=== PATIENT | female | born 1955 ===

== ENCOUNTER 2020-11-25 11:52 | Outpatient (REF) | payer MEDICARE, MEDICAID, SELFPAY ==
--- NOTE | ~2020-11-25 | MM_ITS ---
EXAMINATION: MM SCREENING DIGITAL BREAST TOMOSYNTHESIS, BILATERAL CLINICAL INFORMATION: Screening. Asymptomatic. Prior history reduction mammoplasty, 2012. The lifetime risk of breast cancer based on the Tyrer-Cuzick Model is 4%. COMPARISON: Mammography: 02/16/2018, 04/14/2016, 12/17/2014 TECHNIQUE: Digital breast tomosynthesis is performed in both the craniocaudal and mediolateral oblique views along with computer-aided detection (CAD). Synthesized 2D images are generated from the tomosynthesis. Additional right CC view is provided. FINDINGS: There are scattered areas of fibroglandular density (ACR BI-RADS breast composition Category b). There is minor scarring and scattered benign round calcifications consistent with the prior history reduction mammoplasty. Parenchymal pattern is similar to prior exams. There is no developing density or interval significant mass or architectural abnormality. No significant changes. MM/MM tomosynthesis screening BI IMPRESSION: No mammographic evidence of malignancy. ASSESSMENT: BI-RADS 2: Benign RECOMMENDATION: Routine annual mammography screening. This patient's information was entered into a reminder system with a target due date for their next mammogram.
== END 2020-11-25 11:53 | disposition home or self-care (01) ==
LOC: HO.MAMMO 11:52
PROVIDERS: Visit Provider Internal Medicine
DX: Z12.31 Encounter for screening mammogram for malignant neoplasm of breast (principal)
CPT/HCPCS: 77063; 77067

== ENCOUNTER 2021-10-23 21:01 | Emergency (ER) | payer MEDICARE, MEDICAID, SELFPAY ==
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
[2021-10-23 22:07] VITALS: BP 156/57; PULSE 68; RESP 18; TEMP 36.8; O2SAT 98; BMI 35.6
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
== END 2021-10-24 00:43 | disposition left against medical advice (07) ==
PROVIDERS: Emergency Provider Emergency Medicine; PCP Internal Medicine
DX: S16.1XXA Strain of muscle, fascia and tendon at neck level, initial encounter (principal); V43.52XA Car driver injured in collision with other type car in traffic accident, initial encounter; M79.641 Pain in right hand; Y93.89 Activity, other specified; Y92.414 Local residential or business street as the place of occurrence of the external cause; Y99.9 Unspecified external cause status
CPT/HCPCS: 70450; 72125; 73110; 73130; 99281; 99284

== ENCOUNTER 2022-10-18 18:06 | Outpatient (REF) | payer OTHER, MEDICAID, SELFPAY | END 2022-10-18 18:07 | disposition home or self-care (01) | LOC: HO.HHCLNP 18:06 | PROVIDERS: Visit Provider Student in an Organized Health Care Education/Training Program | DX: R82.90 Unspecified abnormal findings in urine (principal) | CPT/HCPCS: 87086 ==

== ENCOUNTER 2022-10-22 09:17 | Outpatient (REF) | payer OTHER, MEDICAID, SELFPAY ==
--- NOTE | ~2022-10-22 | MM_ITS ---
EXAMINATION: MM SCREENING DIGITAL BREAST TOMOSYNTHESIS, BILATERAL CLINICAL INFORMATION: Screening. Asymptomatic. The patient has had bilateral reduction mammoplasty. The lifetime risk of breast cancer based on the Tyrer-Cuzick Model is 8.1%. COMPARISON: Mammography: This study is compared with prior exams dating back to 2018. TECHNIQUE: Digital breast tomosynthesis is performed in both the craniocaudal and mediolateral oblique views along with computer-aided detection (CAD). Synthesized 2D images are generated from the tomosynthesis. FINDINGS: There are scattered areas of fibroglandular density (ACR BI-RADS breast composition Category b). There are no significant masses, abnormal calcifications, or other abnormalities. Bilateral post-reduction changes are present. MM/MM tomosynthesis screening BI IMPRESSION: No mammographic evidence of malignancy. ASSESSMENT: BI-RADS BI-RADS 2 - Benign Findings RECOMMENDATION: Routine annual mammography screening. 1 year F/U This examination should not preclude the clinical evaluation of a suspicious palpable abnormality. This patient's information was entered into a reminder system with a target due date for their next mammogram.
== END 2022-10-22 09:18 | disposition home or self-care (01) ==
LOC: HO.MAMMO 09:17
PROVIDERS: Visit Provider Internal Medicine
DX: Z12.31 Encounter for screening mammogram for malignant neoplasm of breast (principal)
CPT/HCPCS: 77063; 77067

== ENCOUNTER → 2022-10-22 09:45 | Outpatient (BNV) | payer OTHER, MEDICAID, SELFPAY | PROVIDERS: Visit Provider Radiology Diagnostic Radiology | DX: Z12.31 Encounter for screening mammogram for malignant neoplasm of breast (principal) | CPT/HCPCS: 77063; 77067 ==

== ENCOUNTER 2022-12-02 16:19 | Outpatient (REF) | payer OTHER, MEDICAID, SELFPAY ==
[2022-12-02 19:44] LABS: Free T4 (Free Thyroxine) 0.74 ng/dL (0.71-1.85)
[2022-12-03 09:30] LABS: CT PCR NOT DETECTED (Not Detect.); NG PCR NOT DETECTED (Not Detect.)
[2022-12-03 12:10] LABS: BV Int Neg Control Negative (Negative); BV Int Pos Control Positive (Positive)
== END 2022-12-02 16:20 | disposition home or self-care (01) ==
LOC: HO.HHCL 16:19
PROVIDERS: Visit Provider Emergency Medicine
DX: R30.0 Dysuria (principal); J02.9 Acute pharyngitis, unspecified; E03.9 Hypothyroidism, unspecified
CPT/HCPCS: 0353U; 36415; 84439; 84443; 87086; 87480; 87510; 87660

== ENCOUNTER 2022-12-09 15:40 | Outpatient (REF) | payer OTHER, MEDICAID, SELFPAY ==
[2022-12-09 17:55] LABS: TSH reflex Free T4 5.97 uIU/mL (0.32-4.0)
[2022-12-09 19:14] LABS: Free T4 (Free Thyroxine) 0.86 ng/dL (0.71-1.85)
== END 2022-12-09 15:41 | disposition home or self-care (01) ==
LOC: HO.HHCL 15:40
PROVIDERS: Visit Provider Emergency Medicine
DX: E03.9 Hypothyroidism, unspecified (principal); R30.0 Dysuria
CPT/HCPCS: 36415; 84439; 84443; 87086

== ENCOUNTER 2022-12-14 17:31 | Outpatient (REF) | payer OTHER, SELFPAY ==
[2022-12-15 05:52] LABS: CT PCR NOT DETECTED (Not Detect.); NG PCR NOT DETECTED (Not Detect.)
[2022-12-15 15:12] LABS: BV Int Neg Control Negative (Negative); BV Int Pos Control Positive (Positive)
== END 2022-12-14 17:32 | disposition home or self-care (01) ==
LOC: HO.HHCLNP 17:31
PROVIDERS: Visit Provider Emergency Medicine
DX: R39.9 Unspecified symptoms and signs involving the genitourinary system (principal); Z20.2 Contact with and (suspected) exposure to infections with a predominantly sexual mode of transmission
CPT/HCPCS: 0353U; 87086; 87480; 87510; 87660

== ENCOUNTER 2023-02-10 13:51 | Outpatient (REF) | payer OTHER, SELFPAY ==
[2023-02-10 16:39] LABS: Alanine Aminotransferase 16 U/L (0-31); Albumin Level 3.9 g/dL (3.5-5.0); Alkaline Phosphatase 92 U/L (39-117); Anion Gap 12 (12-20); Aspartate Amino Transferase 21 U/L (5-31); Bilirubin Direct 0.2 mg/dL (0.0-0.5); Bilirubin Total 0.4 mg/dL (0.0-1.0); Blood Urea Nitrogen 18 mg/dL (9-16); Calcium 9.3 mg/dL (8.4-10.2); Carbon Dioxide 26 mmol/L (22-29); Chloride 107 mmol/L (96-108); Estimated Glomerular Filt Rate > 60; Glucose Random 102 mg/dL (60-115); Potassium 4.1 mmol/L (3.3-5.1); Sodium 141 mmol/L (135-145)
[2023-02-10 16:41] LABS: Cholesterol 186 mg/dL (<200); HDL Cholesterol 51 mg/dL (>40); LDL Cholesterol Calculated 115 mg/dL (<100); Triglycerides 104 mg/dL (<150)
[2023-02-10 16:56] LABS: Reflex LDLD? No; TSH reflex Free T4 0.15 uIU/mL (0.32-4.0)
[2023-02-10 17:57] LABS: Free T4 (Free Thyroxine) 1.23 ng/dL (0.71-1.85)
[2023-02-12 21:24] LABS: TS Negative Control Passed; TS Panel A 0; TS Panel B 0; TS Positive Control Passed; TSpotTB Negative (Negative)
== END 2023-02-10 13:52 | disposition home or self-care (01) ==
LOC: HO.HHCL 13:51
PROVIDERS: Visit Provider Internal Medicine
DX: Z00.00 Encounter for general adult medical examination without abnormal findings (principal); J45.20 Mild intermittent asthma, uncomplicated; E03.9 Hypothyroidism, unspecified; E78.2 Mixed hyperlipidemia
CPT/HCPCS: 36415; 80048; 80061; 80076; 84439; 84443; 86481

== ENCOUNTER 2023-03-16 15:07 | Outpatient (AMB) | payer OTHER, SELFPAY ==
--- NOTE | 2023-03-16 15:10 | A.OFFVIS_ITS ---
Intake Intake Visit Reasons: Dysuria Intake Note: NEW Patient presents today to established treatment for Dysuria: Meds- None Allergies to Antibiotic- No Known Allergies Blood Thinner- None Bag Making Machine Tender Required: No Accompanied by: Self / Same As Patient Allergies naproxen [From NAPROSYN] Allergy (Severe, Verified 03/16/23 15:11) TONGUE NUMBNESS, cramps, itching tramadol [TRAMADOL] Allergy (Severe, Verified 03/16/23 15:11) TONGUE NUMBNESS, leg cramps, cramps, itching fish derived [FISH] Allergy (Intermediate, Verified 03/16/23 15:11) RASH AND VOMITING Medication List - Last Reconciled 03/16/23 by Augusto Leslie MD cholecalciferol (vitamin D3) (Vitamin D3) 10 mcg PO QAM levothyroxine 125 mcg PO QAM [id number]-fpka-[id number] acid 18-400 mg-mcg (Certavite-Antioxidant) 1 tab PO QAM phenazopyridine (Pyridium) 200 mg PO BID-TID HPI HPI Comments History of Present Illness Details Marcia is a 68 year old female here as a BEATER OUT evaluation for dysuria. The patient complains of dysuria for several months, she has been to the [facility] urgent care x 3. I have reviewed chart, urine culture 12/14/22 - no growth. I have discussed avoiding dietary bladder irritants, including to cut back on caffeine usage and drinking more water I have discussed workup to include evaluation of the upper tracts with renal US and cystoscopy evaluation. Plan: 03/16/23-- urine for cytology pyridium renal US FU office cysto PFSH Surgical History (Updated 03/16/23 @ 16:14 by MING Hurd) Status post panniculectomy Hx of bilateral breast reduction surgery Hx of cholecystectomy History of sleeve gastrectomy Hx of myomectomy History of prolapse of bladder Hx of tubal ligation Hx of hemorrhoids Hx of hernia repair Family History (Updated 03/16/23 @ 16:15 by MING Hurd) Father No problems noted. Mother No problems noted. Social History (Updated 03/16/23 @ 16:14 by MING Hurd) Alcohol intake: never Patient Tobacco Use Status: Never used Tobacco Review of Systems Const All systems reviewed & are unremarkable except as noted in HPI and below Reports no additional complaints Eyes Reports no additional complaints ENT Reports no additional complaints Card Denies dyspnea Resp Denies cough and Denies dyspnea GI Reports no additional complaints Reports no additional complaints Musc Reports no additional complaints Skin/Breast Denies rash and Denies unusual bruising Neuro Reports no additional complaints Psych Reports no additional complaints Endo Reports no additional complaints Ariel/Lymph Reports no additional complaints Aller/Immun Reports no additional complaints Physical Exam Const General: cooperative, healthy appearing and no acute distress Orientation/consciousness: patient oriented x3 HEENT Head: Yes normal to inspection, Yes normocephalic and Yes atraumatic Eyes Conjunctivae: conjunctivae normal Neck Neck: Yes normal visual inspection and Yes trachea midline Chest Chest palpation & inspection: normal inspection of the chest Resp Effort & Inspection: normal respiratory effort Cardio Rate: regular rate GI Inspection: Yes normal to inspection Skin General skin exam: no rashes or lesions noted Neuro General: patient oriented x3 Extrem General: No edema Psych Appearance: grossly normal Results AMB Urinalysis, Automated UA Leukoctes 15 Scott/uL Last Edit by MING Hurd on 03/16/23 16:18 UA Nitrite Negative Last Edit by MING Hurd on 03/16/23 16:18 UA Urobilinogen 0.2 mg/dL Last Edit by MING Hurd on 03/16/23 16:1 8 UA Protein 15 mg/dL Last Edit by MING Hurd on 03/16/23 16:18 UA pH 5.5 Last Edit by MING Hurd on 03/16/23 16:18 UA Blood 0 Stephen/uL Last Edit by MING Hurd on 03/16/23 16:18 UA Specific [place] 1.030 Last Edit by MING Hurd on 03/16/23 16: 18 UA Ketone Negative Last Edit by MING Hurd on 03/16/23 16:18 UA Bilirubin 0 mg/dL Last Edit by MING Hurd on 03/16/23 16:18 UA Glucose 0 mg/dL Last Edit by MING Hurd on 03/16/23 16:18 Results Reviewed Results Reviewed: Laboratory Last Values Urine pH (Auto) 5.5 03/16/23 16:16 Specific [place] (Auto) 1.030 03/16/23 16:16 Urine Protein (Auto) 15 mg/dL 03/16/23 16:16 Glucose (UA)(Auto) 0 mg/dL 03/16/23 16:16 Urine Ketones (Auto) Negative 03/16/23 16:16 Urine Blood (Auto) 0 Stephen/uL 03/16/23 16:16 Urine Nitrite (Auto) Negative 03/16/23 16:16 Urine Bilirubin (Auto) 0 mg/dL 03/16/23 16:16 Urine Urobilinogen (Auto) 0.2 mg/dL 03/16/23 16:16 Leukocyte Esterase (Auto) 15 Scott/uL 03/16/23 16:16 Assessment & Plan Assessment & Plan (1) Dysuria: Code(s): R30.0 - Dysuria (2) Urinary frequency: Code(s): R35.0 - Frequency of micturition Plan 03/16/23-- urine for cytology pyridium renal US FU office cysto Orders: Orders AMB Urinalysis Automated 03/16/23 Z13.9 - Encounter for screening, unspecified US retroperitoneal comp 03/16/23 R30.0 - Dysuria, R35.0 - Frequency of micturition Medications: New phenazopyridine (Pyridium) take with food 200 mg PO BID-TID 30 tabs 1RF for urine burning Patient Instructions: The patient had an opportunity to ask questions regarding treatment plan. All questions were answered. Laboratory studies and physical exam results were discussed and reviewed in detail. No major barriers to understanding were identified. The patient expressed understanding and agreement with the above treatment plan. The patient is aware they should contact our office by phone for worsening of their current condition or the appearance of new symptoms. Compliance is encouraged with any medications and followup testing that is ordered. It is a privilege to be allowed the opportunity to participate in the urologic care of your patient. If you have any questions or concerns regarding treatment for the above conditions please do not hesitate to contact me. The office telephone contact is [phone]. This note is constructed in part using voice recognition software. While every effort has been made to ensure accuracy family dinner service specialist errors may have been included. Yours sincerely, Augusto Leslie MD Coding Level of Care Code New Pt Level 4 (05401) Diagnoses Dysuria R30.0 Urinary frequency R35.0
== END 2023-03-16 16:06 | disposition home or self-care (01) ==
PROVIDERS: Visit Provider Urology
DX: R30.0 Dysuria (principal); R35.0 Frequency of micturition
CPT/HCPCS: 99204

== ENCOUNTER → 2023-03-16 15:07 | Outpatient (BNVA) | payer OTHER, SELFPAY | PROVIDERS: Visit Provider Urology | DX: R30.0 Dysuria (principal); R35.0 Frequency of micturition | CPT/HCPCS: 81003; 99202 ==

== ENCOUNTER 2023-04-27 14:33 | Outpatient (REF) | payer OTHER, SELFPAY ==
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
== END 2023-04-27 14:34 | disposition home or self-care (01) ==
LOC: HO.US 14:33
PROVIDERS: PCP Internal Medicine; Visit Provider Urology
DX: R30.0 Dysuria (principal); R35.0 Frequency of micturition
CPT/HCPCS: 76775

== ENCOUNTER 2023-04-28 09:01 | Outpatient (REF) | payer OTHER, SELFPAY ==
--- NOTE | ~2023-04-28 | US_ITS ---
EXAMINATION: US PELVIS LIMITED (BLADDER) CLINICAL INFORMATION: Dysuria. COMPARISON: Renal ultrasound from 04/27/2023 TECHNIQUE: Real-time imaging of the bladder. FINDINGS: The urinary bladder appears to have normal wall thickness. No evidence of mass, stone or diverticulum. The urine within the bladder is anechoic. The bladder is distended to a volume of approximately 250 mL. After voiding, the bladder is completely empty. A right ureteral jet is visualized during the brief time of imaging. US/US bladder IMPRESSION: * Urinary bladder has a normal anatomic appearance. * The patient was able to completely empty the bladder (as shown on post void images).
== END 2023-04-28 09:02 | disposition home or self-care (01) ==
LOC: HO.US 09:01
PROVIDERS: PCP Internal Medicine; Visit Provider Urology
DX: R30.0 Dysuria (principal); R35.0 Frequency of micturition
CPT/HCPCS: 52000; 76857; 81003; 99212

== ENCOUNTER 2023-04-28 14:31 | Outpatient (AMB) | payer OTHER, SELFPAY ==
--- NOTE | 2023-04-28 15:17 | MHC.OFFVIS ---
Intake Intake Visit Reasons: cysto/US/ (set) Intake Note: Patient presents today for a CYSTOSCOPY Procedure: Meds: Pyridium Allergies to Antibiotic: No Known Allergies Blood Thinner: None Urinalysis test cleared for Cysto Disposable Uro-G Cystoscope Cannula: Lot: [id number] Exp: 08/11/2024 Sound Person Required: No Accompanied by: Self / Same As Patient Allergies naproxen [From NAPROSYN] Allergy (Severe, Verified 04/28/23 15:18) TONGUE NUMBNESS, cramps, itching tramadol [TRAMADOL] Allergy (Severe, Verified 04/28/23 15:18) TONGUE NUMBNESS, leg cramps, cramps, itching fish derived [FISH] Allergy (Intermediate, Verified 04/28/23 15:18) RASH AND VOMITING Medication List - Last Reconciled 04/28/23 by Augusto Leslie MD cholecalciferol (vitamin D3) (Vitamin D3) 10 mcg PO QAM estradiol 0.01%(0.1mg/gram) (Estrace) 0.5 grams vaginal BEDTIME levothyroxine 125 mcg PO QAM xsetmbidqfyz-hcjt-schnu acid 18-400 mg-mcg (Certavite-Antioxidant) 1 tab PO QAM phenazopyridine (Pyridium) 200 mg PO BID-TID HPI HPI Comments History of Present Illness Details Marcia is a 68 year old female here as a FU evaluation for dysuria. The patient complains of dysuria for several months, [facility] I have reviewed chart, urine culture 12/14/22 - no growth. She was initially evaluated and started empirically on Pyridium and sent for ultrasound. I have also discussed avoiding dietary bladder irritants, including to cut back on caffeine usage and drinking more water I have reviewed renal and bladder ultrasound results with the patient--kidneys within normal limits, bladder ultrasound no suspicious filling defects noted. Evaluation today pelvic exam small urethral caruncle, vaginal atrophy, on cystoscopy bladder filled with 150 mL, bladder mucosa no suspicious bladder lesions, after removal of cystoscope no leakage with cough or Valsalva. Plan: 04/28/23-- cysto today--findings- bladder mucosa - WNL Estrace cream apply dime-sized amount to urethra at bedtime follow-up in 6 months [facility] Surgical History Hx of cystoscopy Status post panniculectomy Hx of bilateral breast reduction surgery Hx of cholecystectomy History of sleeve gastrectomy Hx of myomectomy History of prolapse of bladder Hx of tubal ligation Hx of hemorrhoids Hx of hernia repair Family History Father No problems noted. Mother No problems noted. Social History Alcohol intake: never Patient Tobacco Use Status: Never used Tobacco Review of Systems Const All systems reviewed & are unremarkable except as noted in HPI and below Reports no additional complaints Eyes Reports no additional complaints ENT Reports no additional complaints Card Denies dyspnea Resp Denies cough and Denies dyspnea GI Reports no additional complaints Reports no additional complaints Musc Reports no additional complaints Skin/Breast Denies rash and Denies unusual bruising Neuro Reports no additional complaints Psych Reports no additional complaints Endo Reports no additional complaints Ariel/Lymph Reports no additional complaints Aller/Immun Reports no additional complaints Office Procedures Cystoscopy Consent Discussed risk and benefit or proposed procedure with the patient. Information consent for procedure given to the patient. Discussed technical aspects, risks, benefits and alternatives in full. Addressed all of the patient's questions and concerns regarding the procedure. The patient demonstrated knowledge and understanding. They wish to proceed with this procedure. Preparation The patient was prepped in the usual manner. A regulatory compliance specialist was present and in the room. Genitalia was prepped with betadine solution in a sterile manner. Lidocaine Jelly 2% was placed into the urethra and 16Fr flexible Olympus cystoscope was inserted into the meatus after adequate lubrication. Procedure Time out per protocol performed. Bladder Inspection Bladder Inspection: The bladder was inspected in its entirety with utilization retroflexion displaying: Tumor(s): none visualized Trabeculation: N/A Mucosal Erthema: N/A Orifices: normal shape and position Urethra: normal Cystoscopy findings: WNL, no suspicious bladder lesions visualized [id number] DISPOSABLE SCOPE URO-G FLEXIBLE SCOPE Procedure code (CPT) selection complete Office Meds lidocaine HCl 2 % mucosal jelly in applicator Performing Provider: Augusto Leslie MD [facility] Administered by: Ella Gonsalves RN on 04/28/23 15:35 Dose Route Admin Location Dispensed Lot Number Expiration Date NDC Tie Carrier 10 mL intra-urethral 10 mL ciprofloxacin HCl 500 mg tablet Performing Provider: Augusto Leslie MD Performing Location: [facility] Administered by: Ella Gonsalves RN on 04/28/23 15:35 Dose Route Admin Location Dispensed Lot Number Expiration Date NDC Tie Carrier 500 mg PO 1 tab Results AMB Urinalysis, Automated UA Leukoctes 70 Scott/uL Last Edit by MING Hurd on 04/28/23 15:40 1+ Harika Still 04/28/23 15:40 UA Nitrite Negative Last Edit by Harika Still [facility] on 04/28/23 15:40 UA Urobilinogen 0.2 mg/dL Last Edit by Harika Still [facility] on 04/28/23 15:40 UA Protein 15 mg/dL Last Edit by Harika Still [facility] on 04/28/23 15:40 UA pH 5.5 Last Edit by Harika Still [facility] on 04/28/23 15:40 UA Blood 0 Stephen/uL Last Edit by Harika Stlil [facility] on 04/28/23 15:40 UA Specific Artemus 1.030 Last Edit by Harika Still [facility] on 04/28/23 15:40 UA Ketone Negative Last Edit by Harika Still Varun on 04/28/23 15:40 UA Bilirubin 0 mg/dL Last Edit by Harika Still [facility] on 04/28/23 15:40 UA Glucose 0 mg/dL Last Edit by Harika Still [facility] on 04/28/23 15:40 Results Reviewed Results Reviewed: Laboratory Last Values Urine pH (Auto) 5.5 04/28/23 15:10 Specific Artemus (Auto) 1.030 04/28/23 15:10 Urine Protein (Auto) 15 mg/dL 04/28/23 15:10 Glucose (UA)(Auto) 0 mg/dL 04/28/23 15:10 Urine Ketones (Auto) Negative 04/28/23 15:10 Urine Blood (Auto) 0 Stephen/uL 04/28/23 15:10 Urine Nitrite (Auto) Negative 04/28/23 15:10 Urine Bilirubin (Auto) 0 mg/dL 04/28/23 15:10 Urine Urobilinogen (Auto) 0.2 mg/dL 04/28/23 15:10 Leukocyte Esterase (Auto) 70 Scott/uL 04/28/23 15:10 Assessment & Plan Assessment & Plan (1) Dysuria: Code(s): R30.0 - Dysuria (2) Urinary frequency: Code(s): R35.0 - Frequency of micturition (3) Vaginal atrophy: Code(s): N95.2 - Postmenopausal atrophic vaginitis Plan 04/28/23-- cysto today--findings- bladder mucosa - WNL Estrace cream apply dime-sized amount to urethra at bedtime follow-up in 6 months Orders: Orders AMB Urinalysis Automated 04/28/23 Z13.9 - Encounter for screening, unspecified AMB Cystoscopy 04/28/23 R30.0 - Dysuria, R35.0 - Frequency of micturition Medications: New estradiol 0.01%(0.1mg/gram) (Estrace) use dime sized amount to urethra vaginally 0.5 grams vaginal BEDTIME 42.5 grams 5RF Coding Level of Care Code Est Pt Level 3 (48241) Diagnoses Dysuria R30.0 Urinary frequency R35.0 Vaginal atrophy N95.2 CPT Codes Cystoscopy - CPT: 82236-[id number] ([id number])
== END 2023-04-28 16:17 | disposition home or self-care (01) ==
PROVIDERS: Visit Provider Urology
DX: R30.0 Dysuria (principal); R35.0 Frequency of micturition; N95.2 Postmenopausal atrophic vaginitis
CPT/HCPCS: 52000; 99213

== ENCOUNTER 2023-08-06 14:46 | Emergency (ER) | payer OTHER, SELFPAY ==
--- NOTE | ~2023-08-06 | XR_ITS ---
EXAMINATION: XR KNEE, RIGHT CLINICAL INFORMATION: Pain COMPARISON: Previous x-ray from 2017 TECHNIQUE: Four views of the right knee. FINDINGS: Bone alignment is normal. No fracture or dislocation. Small osteophytes at the medial femoral tibial joint. Joint spaces are otherwise normal. Moderate to large joint effusion. XR/XR knee RT 4V IMPRESSION: Degenerative changes at the medial femoral tibial joint and joint effusion.
[2023-08-06 14:50] VITALS: BP 145/72; PULSE 87; RESP 19; TEMP 36.6; O2SAT 98; BMI 33.8
--- NOTE | 2023-08-06 14:50 | ED.LOWEXIN ---
HPI - Extremity Injury (Lower) General Chief Complaint: Extremity Injury, Lower Stated Complaint: R leg pain Time Seen by Provider: 08/06/23 15:39 Source: patient Mode of arrival: ambulatory Limitations: no limitations History of Present Illness HPI Narrative: 68-year-old female with a history osteoarthritis in the right knee presents to the ER for evaluation of worsening right knee pain for the last couple of days. She can not recall any injury. She states it is painful to walk on the knee and bend the knee. She states it feels slightly swollen. She used to get injections in the knee but not recently. She follows with an orthopedist and [place]. She denies any ankle or hip pain on the right leg. No redness or warmth of the joint. she is walking with a limp due to pain MD complaint: knee injury Onset (ago): day(s) Type of Injury: unknown Place: home Severity: moderate Severity scale (1-10): 7 Relieving factors: immobilization and rest Exacerbating factors: weight bearing, movement and palpation Associated symptoms: able to partially bear weight Other symptoms: none Related Data Home Medications ?Medication ?Instructions ?Recorded ?Confirmed cholecalciferol (vitamin D3) 10 10 mcg PO QAM 03/16/23 04/28/23 mcg (400 unit) tablet (Vitamin D3) levothyroxine 125 mcg tablet 125 mcg PO QAM 03/16/23 04/28/23 multivitamin-ferrous 1 tab PO QAM 03/16/23 04/28/23 fumarate-folic acid 18 mg-400 mcg tablet (Certavite-Antioxidant) Previous Rx's ?Medication ?Instructions ?Recorded phenazopyridine 200 mg tablet 200 mg PO BID-TID for urine 03/16/23 (Pyridium) burning #30 tabs estradiol 0.01% (0.1 mg/gram) 0.5 g vaginal BEDTIME #42.5 grams 04/28/23 vaginal cream (Estrace) Allergies Allergy/AdvReac Type Severity Reaction Status Date / Time naproxen [From NAPROSYN] Allergy Severe TONGUE Verified 08/06/23 14:51 NUMBNESS, cramps, itching tramadol [TRAMADOL] Allergy Severe TONGUE Verified 08/06/23 14:51 NUMBNESS, leg cramps, cramps, itching fish derived [FISH] Allergy Intermediate RASH AND Verified 08/06/23 14:51 VOMITING Review of Systems Review of Systems: Yes all other systems are reviewed and are negative [facility] Past Medical History Surgical History Hx of cystoscopy Status post panniculectomy Hx of bilateral breast reduction surgery Hx of cholecystectomy History of sleeve gastrectomy Hx of myomectomy History of prolapse of bladder Hx of tubal ligation Hx of hemorrhoids Hx of hernia repair Family History Family History Father No problems noted. Mother No problems noted. Social History Social History Alcohol intake: never Patient Tobacco Use Status: Never used Tobacco Advance Directives: No Advance Directives Information Provided: No Physical Exam Vital Signs: Vital Signs: Last Vital Signs Temp 98 F 08/06/23 14:50 Pulse 87 08/06/23 14:50 Resp 19 08/06/23 14:50 BP 145/72 H 08/06/23 14:50 Pulse Ox 98 08/06/23 14:50 O2 Del Method Room Air 08/06/23 14:50 BMI result Body Mass Index 33.8 Appearance: Alert. Oriented X3. No acute distress. HEENT: normal inspection CVS: Normal heart rate and rhythm. Pulses normal. Respiratory: No respiratory distress. Skin: Skin warm and dry. Normal skin color. Normal skin turgor. No rashes. Extremities: wheeze lower extremities, difficult to assess for knee swelling. Pain upon flexion of the right knee once at 45 degrees. Pain with varus and valgus stress. No joint laxity appreciated. No popliteal tenderness, no calf tenderness. Neurovascularly intact distally. Neuro: Oriented X 3. No motor deficit. No sensory deficit. Antalgic gait Course Course Course Narrative: This is an RME performed by Karo Altman CNP: Additional HPI, ROS, PE not included below will be deferred to primary provider. 68-year-old who presents emergency department for evaluation of right knee pain. Reports history of getting injections into the knee, has not had any pain for the past 5 years. Pain began 2 days ago without precipitating injury, unrelieved by acetaminophen. Physical exam: Ambulatory with antalgic gait, no obvious effusion/ erythema or warmth. 2+ DP/PT pulse bilaterally. No calf tenderness. Plan: XR Medical Decision Making Medical Decision Making MDM Narrative: 68-year-old female with history of osteoarthritis presents the ER for evaluation of worsening atraumatic right knee pain. Joint is not warm or red. xr w/ Degenerative changes and a moderate to large joint effusion. No evidence of infection. Placed in Rosalino wrap for compression and support. We discussed results of her x-rays. She will follow up with her orthopedist. No need for arthrocentesis today. She is ambulatory. Stable for discharge home. Differential Diagnosis Differential Diagnoses: The differential diagnosis associated with the presentation includes osteoarthritis, inflammatory arthritis, knee effusion, gout, septic joint Independent Interpretation I performed an independent interpretation of an: Plain X-Ray Interpretation: No acute fractures, agree with radiology read Radiology Impression Discussion of test interpretation with radiology: I have reviewed the radiologist's reading. Radiologist Impression: EXAMINATION: XR KNEE, RIGHT CLINICAL INFORMATION: Pain COMPARISON: Previous x-ray from 2016 TECHNIQUE: Four views of the right knee. FINDINGS: Bone alignment is normal. No fracture or dislocation. Small osteophytes at the medial femoral tibial joint. Joint spaces are otherwise normal. Moderate to large joint effusion. XR/XR knee RT 4V IMPRESSION: Degenerative changes at the medial femoral tibial joint and joint effusion. External Record Review External record reviewed: Outpatient record and Prior outpatient labs Prescription Management I considered prescription management with: Pain Medication Chronic Conditions Patient?s care impacted by: Other ( obesity) Procedures Orthopedic Splinting/Casting Injury #1: Side: right Lower Extremity Injury Location: knee Lower Extremity Immobilizer: Rosalino wrap Critical Care Time Critical Care Time Critical Care Time: No Discharge Plan Discharge Clinical Impression: Effusion of knee Qualifiers: Laterality: right Qualified Code(s): M25.461 - Effusion, right knee Patient Disposition: Home, Self-Care Instructions: Swollen Knee Joint (ED) Additional Instructions: Wear the provided Rosalino wrap for compression. Elevate your knee when possible. Follow-up with your orthopedic doctor, if you have ongoing swelling and fluid in the joint, it may warrant drainage. If you develop new or worsening symptoms call 911 or come back to the ER for further evaluation. EXAMINATION: XR KNEE, RIGHT CLINICAL INFORMATION: Pain COMPARISON: Previous x-ray from 2016 TECHNIQUE: Four views of the right knee. FINDINGS: Bone alignment is normal. No fracture or dislocation. Small osteophytes at the medial femoral tibial joint. Joint spaces are otherwise normal. Moderate to large joint effusion. XR/XR knee RT 4V IMPRESSION: Degenerative changes at the medial femoral tibial joint and joint effusion. Prescriptions: No Action Certavite-Antioxidant 18-400 mg-mcg tablet 1 tab PO QAM levothyroxine 125 mcg tablet 125 mcg PO QAM cholecalciferol (vitamin D3) [Vitamin D3] 10 mcg (400 unit) tablet 10 mcg PO QAM phenazopyridine [Pyridium] 200 mg tablet 200 mg PO BID-TID Qty: 30 1RF Rx Instructions: take with food estradiol [Estrace] 0.01 % (0.1 mg/gram) cream 0.5 g vaginal BEDTIME Qty: 42.5 5RF Rx Instructions: use dime sized amount to urethra vaginally Referrals: Melo Rice MD [Primary Care Provider] - Print Language: Burundian
[2023-08-06 17:06] VITALS: BP 152/101; PULSE 64; RESP 18; TEMP 36.4; O2SAT 100
== END 2023-08-06 17:07 | disposition home or self-care (01) ==
PROVIDERS: Emergency Provider Emergency Medicine; PCP Internal Medicine
DX: M25.461 Effusion, right knee (principal); M79.604 Pain in right leg
CPT/HCPCS: 73564; 99282; 99283

== ENCOUNTER 2023-10-10 12:06 | Outpatient (REF) | payer OTHER, SELFPAY ==
--- NOTE | ~2023-10-10 | XR_ITS ---
EXAMINATION: XR BOTH KNEES, AP STANDING XR RIGHT KNEE, SINGLE VIEW CLINICAL INFORMATION: Pain in the right knee. Pain in the left knee. COMPARISON: 08/06/2023. TECHNIQUE: Standing AP view of both knees and sunrise view of the right knee. FINDINGS: LEFT KNEE: Moderate medial compartment joint space narrowing with marginal osteophytes and articular sclerosis. Vacuum phenomenon in the lateral compartment without significant joint space narrowing. No fracture or malalignment. Soft tissues are unremarkable. RIGHT KNEE: Moderate medial compartment joint space narrowing with marginal osteophytes and articular sclerosis, less pronounced as compared to the left knee medial compartment. Lateral compartment appears relatively well preserved. Small marginal osteophytes in patellofemoral compartment without significant joint space narrowing. Limited sensitivity for effusion in the absence of a lateral view. No acute soft tissue findings. XR/XR knee LT 2V IMPRESSION: Moderate osteoarthritis in the medial compartments of both knees, left greater than right. Mild patellofemoral compartment osteoarthritis in the right knee.
--- NOTE | ~2023-10-10 | XR_ITS ---
EXAMINATION: XR BOTH KNEES, AP STANDING XR RIGHT KNEE, SINGLE VIEW CLINICAL INFORMATION: Pain in the right knee. Pain in the left knee. COMPARISON: 08/06/2023. TECHNIQUE: Standing AP view of both knees and sunrise view of the right knee. FINDINGS: LEFT KNEE: Moderate medial compartment joint space narrowing with marginal osteophytes and articular sclerosis. Vacuum phenomenon in the lateral compartment without significant joint space narrowing. No fracture or malalignment. Soft tissues are unremarkable. RIGHT KNEE: Moderate medial compartment joint space narrowing with marginal osteophytes and articular sclerosis, less pronounced as compared to the left knee medial compartment. Lateral compartment appears relatively well preserved. Small marginal osteophytes in patellofemoral compartment without significant joint space narrowing. Limited sensitivity for effusion in the absence of a lateral view. No acute soft tissue findings. XR/XR knee RT 1V IMPRESSION: Moderate osteoarthritis in the medial compartments of both knees, left greater than right. Mild patellofemoral compartment osteoarthritis in the right knee.
== END 2023-10-10 12:07 | disposition home or self-care (01) ==
LOC: HO.HOSX 12:06
PROVIDERS: Visit Provider Physician Assistant
DX: M17.11 Unilateral primary osteoarthritis, right knee (principal); M25.562 Pain in left knee
CPT/HCPCS: 20610; 73560; 99202; J1010

== ENCOUNTER 2023-10-10 14:13 | Outpatient (AMB) | payer OTHER, SELFPAY ==
[2023-10-10 14:28] VITALS: BMI 32.9
--- NOTE | 2023-10-10 14:28 | A.OFFVIS_ITS ---
Vital Signs 10/10/23 14:28 Height 5 ft 2 in Weight 180 lb BMI 32.9 Intake Visit Reasons: N/P RT knee pain Intake Note: Marcia is a 68 yr old female who presents today as a new pt for RT knee pain. Pt reports injuring her knee at the gym about 3 months ago. Using the stairs and walking for extended periods of time makes the pain worse. She has been taking Tylenol to try to manage the pain. Allergies naproxen [From NAPROSYN] Allergy (Severe, Verified 10/10/23 14:30) TONGUE NUMBNESS, cramps, itching tramadol [TRAMADOL] Allergy (Severe, Verified 10/10/23 14:30) TONGUE NUMBNESS, leg cramps, cramps, itching fish derived [FISH] Allergy (Intermediate, Verified 10/10/23 14:30) RASH AND VOMITING Medication List - Last Reconciled 10/10/23 by Godwin Oswald PA-C cholecalciferol (vitamin D3) (Vitamin D3) 10 mcg PO QAM estradiol 0.01%(0.1mg/gram) (Estrace) 0.5 grams vaginal BEDTIME levothyroxine 125 mcg PO QAM swlizgbgwvmf-kxni-ruack acid 18-400 mg-mcg (Certavite-Antioxidant) 1 tab PO QAM phenazopyridine (Pyridium) 200 mg PO BID-TID HPI HPI N/P RT knee pain : Details: 68-year-old female who presents to the office today for an evaluation of right knee pain after injuring her knee at the gym about 4 months ago. She states she has pain in her right knee that is aggravated with stair use and prolonged walking. She takes Tylenol for her pain. She does not have a history of diabetes. [facility] Surgical History Hx of cystoscopy Status post panniculectomy Hx of bilateral breast reduction surgery Hx of cholecystectomy History of sleeve gastrectomy Hx of myomectomy History of prolapse of bladder Hx of tubal ligation Hx of hemorrhoids Hx of hernia repair Family History Father No problems noted. Mother No problems noted. Social History Alcohol intake: never Patient Tobacco Use Status: Never used Tobacco Review of Systems Const All systems reviewed & are unremarkable except as noted in HPI and below Physical Exam Vital Signs: BMI result Body Mass Index 32.9 Const General: cooperative, healthy appearing, comfortable, no acute distress, well developed and alert Orientation/consciousness: patient oriented x3 HEENT Head: Yes normal to inspection, Yes normocephalic and Yes atraumatic Eyes General: appearance normal, both eyes and all related structures Resp Effort & Inspection: normal respiratory effort and able to speak in complete sentences Cardio Rate: regular rate Peripheral pulses: Peripheral pulses 2+ throughout GI Palpation (GI): Soft to palpation Skin Lesions: no lesions Rashes: no rashes Neuro General: patient oriented x3 Extrem Other: Right knee: Skin intact, no erythema or joint effusion. Tenderness along the medial and lateral joint line. Full ROM with crepitus. Negative Foreign?s. No ligamentous laxity. NVI. ? Office Procedures Joint Injection/Drain Joint Injection/Drain Primary Site: right knee Prep: site was prepped using aseptic technique, ethochloride spray was applied and injection warnings given Injected: 80 mg of, DepoMedrol, with 8 mL of, 1% plain lidocaine and in the joint Approach Used: anterolateral Procedure: The patient tolerated the procedure well and there was some relief with the local anesthesia Coding 66149 - Glenohumeral/Tronchanteric Bursa/Intraarticular Procedure code (CPT) selection complete Results Reviewed Results Reviewed: Xrays were obtained in the office today and personally reviewed by me of the right knee show medial compartment oa Assessment & Plan Assessment & Plan (1) Osteoarthritis of right knee: Code(s): M17.11 - Unilateral primary osteoarthritis, right knee Category: Medical Qualifiers: Osteoarthritis type: primary Qualified Code(s): M17.11 - Unilateral [facility] [place] osteoarthritis, right knee Plan We discussed options today, which include steroid injection. The patient did consent to move forward with the right knee injection, which was tolerated well. I recommended rest, ice, and elevation and OTC anti-inflammatories as needed for discomfort. An order for physical therapy was also placed in the office today. If symptoms persist or worsen over the next 6-8 weeks, patient will contact the office, otherwise follow-up as needed. Orders: Orders XR knee LT 2V Today M25.562 - Pain in left knee XR knee RT 1V Today M25.561 - Pain in right knee PT Evaluation and Treatment Today M17.11 - Unilateral primary osteoarthritis, right knee Patient Instructions: Scribed for Godwin Oswald PA-C, by [employer], on 10/10/2023 at 2:45 PM EST.? I, Godwin Oswald PA-C, have personally reviewed and agree with the information entered by the scribe. Coding Level of Care Code New Pt Level 3 (51106) Diagnoses Primary osteoarthritis of right knee M17.11 Osteoarthritis type: primary CPT Codes Coding - Joint 7: 29752 - Glenohumeral/Tronchanteric Bursa/Intraarticular ([id number])
== END 2023-10-10 14:52 | disposition home or self-care (01) ==
PROVIDERS: PCP Internal Medicine; Visit Provider Physician Assistant
DX: M17.11 Unilateral primary osteoarthritis, right knee (principal)
CPT/HCPCS: 20610; 99203

== ENCOUNTER 2023-11-01 15:32 | Outpatient (REF) | payer OTHER, SELFPAY ==
[2023-11-01 17:39] LABS: TSH reflex Free T4 0.01 uIU/mL (0.32-4.0)
[2023-11-01 18:19] LABS: Free T4 (Free Thyroxine) 1.22 ng/dL (0.71-1.85)
== END 2023-11-01 15:33 | disposition home or self-care (01) ==
LOC: HO.HHCL 15:32
PROVIDERS: Visit Provider Internal Medicine
DX: E03.9 Hypothyroidism, unspecified (principal)
CPT/HCPCS: 36415; 84439; 84443

== ENCOUNTER 2023-12-01 13:05 | Outpatient (AMB) | payer OTHER, SELFPAY ==
--- NOTE | 2023-12-01 13:07 | MHC.OFFVIS ---
Intake Visit Reasons: 6m follow up Intake Note: Patient is present for 6m f/u Urology Medication:pyridium, estrace Antibiotic Allergy:none Blood Thinner:none Child Daycare Worker Required: Yes Child Daycare Worker Name: Rosario [phone] Allergies naproxen [From NAPROSYN] Allergy (Severe, Verified 12/01/23 13:13) TONGUE NUMBNESS, cramps, itching tramadol [TRAMADOL] Allergy (Severe, Verified 12/01/23 13:13) TONGUE NUMBNESS, leg cramps, cramps, itching fish derived [FISH] Allergy (Intermediate, Verified 12/01/23 13:13) RASH AND VOMITING HPI Comments Details: 12/01/23--Marcia is here for follow-up due to symptoms of dysuria, vaginal atrophy, she was evaluated for hematuria. She was prescribed Estrace cream. She states that her symptoms have improved a little. She has been using the applicator. I reinstructed her to use a small amount on her fingertip and placed vaginally every night at bedtime. She denies urinary incontinence. We will follow-up in 6 months Review of chart: 04/28/23--Marcia is a 68 year old female here as a FU evaluation for dysuria. The patient complains of dysuria for several months, she has been to the [facility] urgent care x 3. I have reviewed chart, urine culture 12/14/22 - no growth. She was initially evaluated and started empirically on Pyridium and sent for ultrasound. I have also discussed avoiding dietary bladder irritants, including to cut back on caffeine usage and drinking more water I have reviewed renal and bladder ultrasound results with the patient--kidneys within normal limits, bladder ultrasound no suspicious filling defects noted. Evaluation today pelvic exam small urethral caruncle, vaginal atrophy, on cystoscopy bladder filled with 150 mL, bladder mucosa no suspicious bladder lesions, after removal of cystoscope no leakage with cough or Valsalva. [facility] Surgical History Hx of cystoscopy Status post panniculectomy Hx of bilateral breast reduction surgery Hx of cholecystectomy History of sleeve gastrectomy Hx of myomectomy History of prolapse of bladder Hx of tubal ligation Hx of hemorrhoids Hx of hernia repair Family History Father No problems noted. Mother No problems noted. Social History Alcohol intake: never Patient Tobacco Use Status: Never used Tobacco Review of Systems Const All systems reviewed & are unremarkable except as noted in HPI and below Reports no additional complaints Eyes Reports no additional complaints ENT Reports no additional complaints Card Reports no additional complaints Resp Reports no additional complaints GI Reports no additional complaints Reports as per HPI Musc Reports no additional complaints Skin/Breast Reports system reviewed and no additional complaints, except as documented Neuro Reports no additional complaints Psych Reports no additional complaints Endo Reports no additional complaints Ariel/Lymph Reports no additional complaints Aller/Immun Reports no additional complaints Results AMB Urinalysis, Automated UA Leukoctes 0 Scott/uL Last Edit by Daljit Bernal CCM on 12/01/23 13:24 UA Nitrite Negative Last Edit by Daljit Bernal [facility] on 12/01/23 13:24 UA Urobilinogen 0.2 mg/dL Last Edit by Daljit Bernal [facility] on 12/01/23 13:24 UA Protein 0 mg/dL Last Edit by Daljit Bernal [facility] on 12/01/23 13:24 UA pH 6.0 Last Edit by Daljit Bernal [facility] on 12/01/23 13:24 UA Blood 0 Stephen/uL Last Edit by Daljit Bernal CCM on 12/01/23 13:24 UA Specific [place] 1.030 Last Edit by Daljit Bernal CCM on 12/01/23 13:24 UA Ketone Negative Last Edit by Daljit Bernal [facility] on 12/01/23 13:24 UA Bilirubin 0 mg/dL Last Edit by Daljit Bernal [facility] on 12/01/23 13:24 UA Glucose 0 mg/dL Last Edit by Daljit Bernal [facility] on 12/01/23 13:24 Results Reviewed Results Reviewed: Laboratory Last Values Urine pH (Auto) 6.0 12/01/23 13:23 Specific [place] (Auto) 1.030 12/01/23 13:23 Urine Protein (Auto) 0 mg/dL 12/01/23 13:23 Glucose (UA)(Auto) 0 mg/dL 12/01/23 13:23 Urine Ketones (Auto) Negative 12/01/23 13:23 Urine Blood (Auto) 0 Stephen/uL 12/01/23 13:23 Urine Nitrite (Auto) Negative 12/01/23 13:23 Urine Bilirubin (Auto) 0 mg/dL 12/01/23 13:23 Urine Urobilinogen (Auto) 0.2 mg/dL 12/01/23 13:23 Leukocyte Esterase (Auto) 0 Scott/uL 12/01/23 13:23 Assessment & Plan Assessment & Plan (1) Dysuria: Code(s): R30.0 - Dysuria Category: Medical (2) Urinary frequency: Code(s): R35.0 - Frequency of micturition Category: Medical (3) Vaginal atrophy: Code(s): N95.2 - Postmenopausal atrophic vaginitis Category: Medical Plan Estrace cream apply dime-sized amount to urethra at bedtime follow-up in 6 months Orders: Orders AMB Urinalysis Automated Today Z13.9 - Encounter for screening, unspecified Medications: Refilled estradiol 0.01%(0.1mg/gram) (Estrace) use dime sized amount to urethra vaginally 0.5 grams vaginal BEDTIME 42.5 grams 5RF Patient Instructions: The patient had an opportunity to ask questions regarding treatment plan. The patient expressed understanding and agreement with the above treatment plan. The patient is aware they should contact our office by phone for worsening of their current condition or the appearance of new symptoms. Compliance is encouraged with any medications and followup testing that is ordered. It is a privilege to be allowed the opportunity to participate in the urologic care of your patient. If you have any questions or concerns regarding treatment for the above conditions please do not hesitate to contact me. The office telephone contact is [phone]. This note is constructed in part using voice recognition software. While every effort has been made to ensure accuracy meat cooler errors may have been included. Yours sincerely, Augusto Leslie MD Coding Level of Care Code Est Pt Level 4 (89646) Diagnoses Dysuria R30.0 Urinary frequency R35.0 Vaginal atrophy N95.2
== END 2023-12-01 13:42 | disposition home or self-care (01) ==
PROVIDERS: PCP Internal Medicine; Visit Provider Urology
DX: R30.0 Dysuria (principal); R35.0 Frequency of micturition; N95.2 Postmenopausal atrophic vaginitis; Z13.9 Encounter for screening, unspecified
CPT/HCPCS: 99214

== ENCOUNTER → 2023-12-01 13:05 | Outpatient (BNVA) | payer OTHER, SELFPAY | PROVIDERS: PCP Internal Medicine; Visit Provider Urology | DX: R30.0 Dysuria (principal); N95.2 Postmenopausal atrophic vaginitis; R35.0 Frequency of micturition | CPT/HCPCS: 81003; 99212 ==

== ENCOUNTER 2023-12-20 13:20 | Outpatient (REF) | payer OTHER, SELFPAY ==
--- NOTE | ~2023-12-20 | MM_ITS ---
EXAMINATION: MM SCREENING DIGITAL BREAST TOMOSYNTHESIS, BILATERAL CLINICAL INFORMATION: Screening. Asymptomatic. COMPARISON: Mammography: Comparison is made with available priors TECHNIQUE: Digital breast mammography with tomosynthesis is performed in both the craniocaudal and mediolateral oblique views along with computer-aided detection (CAD). FINDINGS: There are scattered areas of fibroglandular density (ACR BI-RADS breast composition Category b). Bilateral reduction mammoplasty. There are no significant masses, abnormal calcifications, or other abnormalities. MM/MM tomosynthesis screening BI IMPRESSION: No mammographic evidence of malignancy. ASSESSMENT: BI-RADS BI-RADS 2 - Benign Findings RECOMMENDATION: Routine annual mammography screening. 1 year F/U This examination should not preclude the clinical evaluation of a suspicious palpable abnormality. This patient's information was entered into a reminder system with a target due date for their next mammogram. Electronically signed by: Rosaura Dumont DO 01/02/2024 06:50 PM EDT
== END 2023-12-20 13:21 | disposition home or self-care (01) ==
LOC: HO.MAMMO 13:20
PROVIDERS: PCP Internal Medicine; Visit Provider Internal Medicine
DX: Z12.31 Encounter for screening mammogram for malignant neoplasm of breast (principal)
CPT/HCPCS: 77063; 77067

== ENCOUNTER → 2023-12-20 13:30 | Outpatient (BNV) | payer OTHER, SELFPAY | PROVIDERS: PCP Internal Medicine; Visit Provider Internal Medicine | DX: Z12.31 Encounter for screening mammogram for malignant neoplasm of breast (principal) | CPT/HCPCS: 77063; 77067 ==

== ENCOUNTER 2024-02-10 14:00 | Outpatient (RCR) | payer OTHER, SELFPAY ==
--- NOTE | 2024-01-03 17:07 | MHC.PT.EP ---
[facility] [place] Office [place] Office [place] Office [address] Drew Santoyo [address] [phone] F: [phone] F: [phone] F: [phone] F: [phone] Physical Therapy Plan of Care Date of Evaluation: 01/03/24 Date of Surgery: Diagnosis: OA of R knee Assessment: Pt is a 68 y/o F who is referred to PT for eval and treat of R knee OA resulting in decreased tolerance or ability for walking, working, stairs, standing and sitting for extended periods of time secondary to decreased knee ROM and strength, increased B HS tissue tension, decreased hip strength, x-rays showing moderate OA in B medial compartments and TTP over medial joint line and patella of R knee. Pt is motivated and is deemed an appropriate candidate to receive skilled PT services to address her physical impairments in order to improve her function. Frequency and Duration: The patient will be seen 2x/week for 4 weeks. Short Term Goals: Initiate home exercise program. Pt will report at most 5/10 pain; initial 7-10/10. Pt will improve R knee ext strength by 1/2 grade; initial 4/5. Header Operator Goals: Pt will be I with home exercise program. Pt will report at most moderate difficulty going up and down the stairs; initial extreme difficulty. Pt will report at most moderate difficulty with standing for 1 hour; initial extreme difficulty. Pt will improve LEFI score by at least 9 points. Treatment Plan: Modalities to reduce pain, spasms and effusion. Manual therapy to restore motion and function. Therapeutic exercise to improve strength and flexibility. Neuromuscular re-education for posture and balance. Therapeutic activities to return to functional activities of daily living. Electronically signed by: Norris Antonio PT. Please sign and return to therapist. Thank you for your referral.
--- NOTE | 2024-02-10 15:03 | MHC.PT.DC ---
[facility] [place] Office [place] Office [place] Office [address] Drew Santoyo 140 [facility] [phone] F: [phone] F: [phone] F: [phone] F: [phone] Physical Therapy Discharge Report Diagnosis: OA of R knee Date of Surgery: Date of Evaluation: 01/03/24 Date of Discharge: 02/10/24 Treatments to Date: 8 Cancellations to Date: No Shows to Date: Discharge Status: Achieved Goals Improved Function Independent with HEP Discharge Summary: Marcia has been an active participant in her therapy in and out of the clinic; she is in agreement with DC today as she has met her therapeutic goals, is improved of her pain and function, and I with her home program. Electronically signed by: Norris Antonio PT Please sign and return to therapist. Thank you for your referral.
== END 2024-02-10 15:03 | disposition home or self-care (01) ==
LOC: HO.PT 14:00
PROVIDERS: PCP Internal Medicine; Visit Provider Physician Assistant
DX: M17.11 Unilateral primary osteoarthritis, right knee (principal)
CPT/HCPCS: 97110; 97112; 97161; 97530

== ENCOUNTER 2024-04-20 10:35 | Outpatient (REF) | payer OTHER, SELFPAY ==
[2024-04-20 12:06] LABS: Alanine Aminotransferase 14 U/L (0-31); Albumin Level 3.8 g/dL (3.5-5.0); Alkaline Phosphatase 88 U/L (39-117); Anion Gap 7 (12-20); Aspartate Amino Transferase 22 U/L (5-31); Bilirubin Total 0.5 mg/dL (0.0-1.0); Blood Urea Nitrogen 15 mg/dL (9-16); Calcium 9.1 mg/dL (8.4-10.2); Carbon Dioxide 29 mmol/L (22-29); Chloride 109 mmol/L (96-108); Cholesterol 173 mg/dL (<200); Estimated Glomerular Filt Rate > 60; Glucose Random 78 mg/dL (60-115); HDL Cholesterol 58 mg/dL (>40); LDL Cholesterol Calculated 103 mg/dL (<100); Sodium 141 mmol/L (135-145); Total Protein 6.9 g/dL (6.5-8.0); Triglycerides 63 mg/dL (<150)
[2024-04-20 12:08] LABS: TSH reflex Free T4 0.12 uIU/mL (0.32-4.0)
[2024-04-20 12:50] LABS: Free T4 (Free Thyroxine) 1.26 ng/dL (0.71-1.85)
== END 2024-04-20 10:36 | disposition home or self-care (01) ==
LOC: HO.HHCL 10:35
PROVIDERS: Visit Provider Internal Medicine
DX: E78.2 Mixed hyperlipidemia (principal); E03.9 Hypothyroidism, unspecified
CPT/HCPCS: 36415; 80053; 80061; 84439; 84443

== ENCOUNTER 2024-08-14 14:18 | Outpatient (REF) | payer OTHER, SELFPAY ==
--- OUTSIDE RECORDS SUMMARY | 2024-08-14 15:30 | XMS_ITS | Clinical Summary ---
Author Organization [employer] Address [address] [place] [address] Care Team Providers Care Car Worker Helper Name Role Phone Melo Rice MD Primary Care Provi [facility] Surgical History Surgery Date Site/Laterality Comments BARIATRIC SURGERY 07/07/2016 PROCEDURE: MT LAPS GSTRC RSTRICTIV PX LONGITUDINAL GASTRECTOMY LAPAROSCOPIC GASTRIC BANDING PROCEDURE: LAP ADJUSTABLE GASTRIC BAND; COMMENT: subsequent removal due to complications Medical History Medical History Date Comments Asthma 10/26/2017 DX:Asthma Hiatal hernia 10/26/2017 DX:Hiatal hernia ; COMMENT: Lap repair 07/07/16 Hypothyroid 10/26/2017 DX:Hypothyroid 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 Social History Tobacco Use Types Packs/Day Years Used Date Smoking Tobacco: Never Smokeless Tobacco: Never Alcohol Use Standard Drinks/Week Comments No 0 (1 standard drink = 0.6 oz pur e alcohol) Comments Unknown Sex and Gender Information Value Date Recorded Sex Assigned at Not on file Legal Sex Female 2:32 PM EST Gender Identity Not on file Sexual Orientation Not on file Obstetrics History Plan of Treatment Health Maintenance Due Date Last Done Comments Breast Cancer Screening 1955 DTaP,Tdap,and Td Vaccines (1 - Tdap) 02/22/1972 Pneumococcal Vaccine: 50+ Ye ars (1 of 1 - PCV) 2003 Zoster Vaccines (1 of 2) 2003 COVID-19 Vaccine ( - 2023-2 5 season) 2023 Influenza Vaccine (Season Ended) 2024 RSV Immunization Adult Patie nts (1 - 1-dose 75+ series) 02/22/2028 HIB Vaccines Aged Out No longer eligi ble based on patient's age to complete this topic HPV Vaccines Aged Out No longer eligi ble based on patient's age to complete this topic Hepatitis A Vaccines Aged Out No long er eligible based on patient's age to complete this topic Hepatitis B Vaccines Aged Out No long er eligible based on patient's age to complete this topic IPV Vaccines Aged Out No longer eligi ble based on patient's age to complete this topic MMR Vaccines Aged Out No longer eligi ble based on patient's age to complete this topic Meningococcal ACWY Vaccine Aged Out N o longer eligible based on patient's age to complete this topic Meningococcal B Vaccine Aged Out No l onger eligible based on patient's age to complete this topic RSV Immunization Patients Un ted 20 months Aged Out No longer eligible b ased on patient's age to complete this topic Varicella Vaccines Aged Out No longer eligible based on patient's age to complete this topic Care Teams Car Worker Helper Relationship Specialty Start Date End Date Melo Rice MD [address] [place] [address] [place] [address] PCP - General 03/17/07
--- OUTSIDE RECORDS SUMMARY | 2024-08-14 15:30 | XMS_ITS | Encounter Summary ---
Author Organization [employer] Address [address] [place] [address] Care Team Providers Care Wire Winding Machine Operator Name Role Phone Melo Grier MD Primary Care Provide r Reason for Visit * Reason Comments Med Refill Encounter Details Date Type Department Care Team ([facility] st Contact Info) Description 06/29/2023 Refill [facility] MEDICINE [address] [place], [place] [phone] Melo Grier MD [address] [place], [place] [phone] Social History Tobacco Use Types Packs/Day Years Used Date Smoking Tobacco: Never Passive Smoke Exposure: Never Smokeless Tobacco: Never Depression Answer Date Recorded Patient Health Questionnaire-9 Score 0 02/10/2023 Patient Health Questionnaire-9 Score 0 02/10/2023 Last PHQ-9: Questionnaire Data Not on file 1 04/12/2022 Housing Stability Answer Date Recorded What is your housing situation today? I have roslyn dover 02/10/[address] you li ve. Do you have problems with any of the following? None of the above 02/10/2023 Food Insecurity Answer Date Recorded Within the past 12 months, y ou worried that your food would run out before you got money to buy more: Never True 02/10/2023 Within the past 12 months,th e food you bought just didn't last and you didn't have enough money to get more: Never True 12/2022 Transportation Answer Date Recorded In the past 12 months, has l ack of transportation kept you from medical appts, meetings, work or from getting things needed for daily living? No 02/10/2023 Utilities Answer Date Recorded In the past 12 months, has t he electric, gas, oil or water company threatened to shut off services in your home? No 02/10/2023 Depression Answer Date Recorded Patient Health Questionnaire-2 Score 0 02/10/2023 Comments Unknown Sex and Gender Information Value Date Recorded Sex Assigned at Female 02/01/2022 10:14 AM EDT Legal Sex Female 10:14 AM EDT Gender Identity Female 02/01/2022 10:14 AM EDT Sexual Orientation Straight 02/01/2022 10 :14 AM EDT documented as of this encounter Plan of Treatment Not on file documented as of this encounter Visit Diagnoses Not on filedocumented in this encounter Additional Health Concerns Assessment Noted Time PHQ-9 Depression Total Score: 0 02/11/20 23 1:13 PM EST documented as of this encounter Care Teams Wire Winding Machine Operator Relationship Specialty Start Date End Date Melo Grier MD [address] [place] [id number] PCP - General Internal Medicine 10/19/13 documented as of this encounter
--- OUTSIDE RECORDS SUMMARY | 2024-08-14 15:30 | XMS_ITS | Encounter Summary ---
Author Organization [employer] Address [address] [facility] [address] [facility] [place] [address] Care Team Providers Care Auditor Internal Name Role Phone Melo Grier MD Primary Care Provide r Encounter Details Date Type Department Care Team (Late st Contact Info) Description 05/31/2022 Orders Only [facility] [address] [place] [address] Yanci Hernandez LPN Social History Tobacco Use Types Packs/Day Years Used Date Smoking Tobacco: Never Assessed Comments Unknown Sex and Gender Information Value Date Recorded Sex Assigned at Female 02/01/2022 10:14 AM EDT Legal Sex Female 10:14 AM EDT Gender Identity Female 02/01/2022 10:14 AM EDT Sexual Orientation Straight 02/01/2022 10 :14 AM EDT documented as of this encounter Plan of Treatment Not on file documented as of this encounter Visit Diagnoses Not on filedocumented in this encounter Care Teams Auditor Internal Relationship Specialty Start Date End Date Melo Grier MD [address] [place] [phone] PCP - General Internal Medicine 10/19/13 documented as of this encounter
--- OUTSIDE RECORDS SUMMARY | 2024-08-14 15:31 | XMS_ITS | Encounter Summary ---
Author Organization [employer] Address [address] [place] [address] 7t [place] [address] Care Team Providers Care Corporate Manager Name Role Phone Melo Grier MD Primary Care Provide r Reason for Referral * Imaging (Routine) - Authorized Specialty Diagnoses / Procedures Referred By Contac t Referred To Contact Radiology Diagnoses Hypothyroidism, unspecified type Postmenopausal Procedures BD DEXA Axial Melo Grier MD [address] [place] [address] Phone: tel: fax: [address] Phone: tel: fax: Referral ID Status Reason Start Date Expiration Date V isits Requested Visits Authorized [id number] Authorized 08/14/2024 08/14/2025 1 1 Encounter Details Date Type Department Care Team (Late st Contact Info) Description 08/14/2024 2:15 PM EDT Office Visit [facility] [address] [place] [phone] Melo Grier MD [address] [place] [phone] Hypothyroidism, unspecified type (Primary Dx); Postmenopausal; Mixed hyperlipidemia; Class 1 obesity due to excess calories with serious comorbidity and body mass index (BMI) of 32.0 to 32.9 in adult; Preventative health care; Dietary counseling; Exercise counseling; Encounter for immunization Social History Tobacco Use Types Packs/Day Years Used Date Smoking Tobacco: Never Passive Smoke Exposure: Never Smokeless Tobacco: Never Tobacco Cessation:Counseling Given: Not Answered Depression Answer Date Recorded Patient Health Questionnaire-9 Score 0 04/10/2024 Patient Health Questionnaire-9 Score 0 04/10/2024 Last PHQ-9: Questionnaire Data Not on file 0 04/10/2024 Housing Stability Answer Date Recorded What is your housing situation today? I have roslyn dover 03/29/[address] you li ve. Do you have problems with any of the following? None of the above 03/29/2024 Food Insecurity Answer Date Recorded Within the past 12 months, y ou worried that your food would run out before you got money to buy more: Often true 03/29/2024 Within the past 12 months,th e food you bought just didn't last and you didn't have enough money to get more: Often true Transportation Answer Date Recorded In the past 12 months, has l ack of transportation kept you from medical appts, meetings, work or from getting things needed for daily living? No 03/29/2024 Utilities Answer Date Recorded In the past 12 months, has t he electric, gas, oil or water company threatened to shut off services in your home? No 03/29/2024 Depression Answer Date Recorded Patient Health Questionnaire-2 Score 0 04/10/2024 Internet Access Answer Date Recorded Internet Access Q1 Yes 03/29/2024 Internet Access Q2 Not on file 03/29/2024 Comments Unknown Sex and Gender Information Value Date Recorded Sex Assigned at Female 02/01/2022 10:14 AM EDT Legal Sex Female 10:14 AM EDT Gender Identity Female 02/01/2022 10:14 AM EDT Sexual Orientation Straight 02/01/2022 10 :14 AM EDT documented as of this encounter Last Filed Vital Signs Vital Sign Reading Time Taken Comments Blood Pressure 121/74 08/14/2024 1:57 PM EDT Pulse 71 08/14/2024 1:57 PM EDT Temperature 36.4 ??C (97.6 ??F) 08/14/2024 1:57 PM ED T Respiratory Rate 20 08/14/2024 1:57 PM EDT Oxygen Saturation 99% 08/14/2024 1:57 PM EDT Inhaled Oxygen Concentration - - Weight 80.7 kg (178 lb) 08/14/2024 1:57 PM EDT Height 157.5 cm (5' 2 ) 08/14/2024 1:57 PM EDT Body Mass Index 32.56 08/14/2024 1:57 PM EDT documented in this encounter Progress Notes * Melo Bermudez MD - 08/14/2024 2:15 PM EDT SUBJECTIVE Marcia Diaz is a 69 y.o. female who presents for No chief complaint on file.. Pt here for a follow up Review of Systems Constitutional: Negative for fever. HENT: Negative for sore throat. Respiratory: Negative for cough and shortness of breath. Cardiovascular: Negative for chest pain. Gastrointestinal: Negative for abdominal pain. Neurological: Negative for headaches. Allergies Allergen Reactions Fish Allergy Tramadol OBJECTIVE Vitals: 08/14/24 1357 BP: 121/74 BP Location: Left arm Patient Position: Sitting BP Cuff Size: Adult long Pulse: 71 Resp: 20 Temp: 97.6 ??F (36.4 ??C) TempSrc: Temporal SpO2: 99% Weight: 178 lb (80.7 kg) Height: 5' 2 (1.575 m) Physical Exam Vitals reviewed. Constitutional: Appearance: Normal appearance. HENT: Head: Normocephalic and atraumatic. Right Ear: External ear normal. Left Ear: External ear normal. Nose: Nose normal. Mouth/Throat: Mouth: Mucous membranes are moist. Eyes: Conjunctiva/sclera: Conjunctivae normal. Cardiovascular: Rate and Rhythm: Normal rate and regular rhythm. Pulmonary: Effort: Pulmonary effort is normal. Breath sounds: Normal breath sounds. Skin: General: Skin is warm. Neurological: Mental Status: She is alert. Mental status is at baseline. Assessment/Plan Problem List Items Addressed This Visit Hypothyroidism - Primary Pt here for a f/u Pt on Levothyroxine 100 mcg po daily. Thyroid US done 05/12/2016 showed 2 mm cyst in the right lobe unchanged Re-check Lab Results Component Value Date TSH 0.12 (L) 04/20/2024 Was suppressed, Levothyroxine was then lowered from 112 to 100 mcg Will repeat again Relevant Orders TSH with Reflex to Free T4 BD DEXA Axial Mixed hyperlipidemia Patient with elevated lipids. Here for a f/u Most recent lipid profile from: Lab Results Component Value Date TRIG 63 04/20/2024 TRIG 104 02/10/2023 CHOL 173 04/20/2024 CHOL 186 02/10/2023 LDLCHOLCAL 103 (H) 04/20/2024 LDLCHOLCAL 115 (H) 02/10/2023 HDL 58 04/20/2024 HDL 51 02/10/2023 she has actually managed to lower her cholesterol with Diet. For now will continue with current regimen. advised to try to adhere to a low cholesterol diet, counseled and educated about diet and exercise Class 1 obesity due to excess calories with serious comorbidity and body mass index (BMI) of 32.0 to 32.9 in adult Dietary Recommendations: Fruits, vegetables, whole grains, protein foods, and fat-free or low-fat dairy products are healthychoices. Eat different types of protein foods in your diet. This can include seafood, lean meats, poultry, beans, peas, lentils, nuts, seeds, soy products, and eggs. Limit foods and beverages higher in added sugars, saturated fat, and sodium. Exercise Recommendations: At least 150 minutes of moderate-intensity physical activity per week, or an equivalent combinationof moderate- and vigorous-intensity activity Preventative health care Mammogram: 12/20/2023 Normal . Pap Smear: 05/25/2016 according to her report by midwives she was told there was no need to continue Colonoscopy: 07/2015 Dr Hines Vaccines: Pneumovax: 12/31/1999. Due when turns 63 Tdap: 05/24/2014 Zoster: 05/24/2014 Dexa scan: 01/26/2013 Normal. Will repeat Relevant Orders T-SPOT??.TB Other Visit Diagnoses Postmenopausal Relevant Orders BD DEXA Axial Dietary counseling Exercise counseling Future Appointments Date Time Provider Department Center 08/14/2024 2:15 PM Melo Bermudez MD [facility] documented in this encounter Miscellaneous Notes * Addendum Note - Criselda Maddox RN - 08/14/2024 2:15 PM EDTAddended by: CRISELDA MADDOX on: 08/14/2024 02:16 PM Modules accepted: Orders * Assessment & Plan Note - Melo Bermduez MD - 08/14/2024 1:49 PM EDT Associated Problem(s): Class 1 obesity due to excess calories with serious comorbidity and body mass index (BMI) of 32.0 to 32.9 in adult Dietary Recommendations: Fruits, vegetables, whole grains, protein foods, and fat-free or low-fat dairy products are healthychoices. Eat different types of protein foods in your diet. This can include seafood, lean meats, poultry, beans, peas, lentils, nuts, seeds, soy products, and eggs. Limit foods and beverages higher in added sugars, saturated fat, and sodium. Exercise Recommendations: At least 150 minutes of moderate-intensity physical activity per week, or an equivalent combinationof moderate- and vigorous-intensity activity * Assessment & Plan Note - Melo Bermudez MD - 08/14/2024 1:48 PM EDT Associated Problem(s): Mixed hyperlipidemia Patient with elevated lipids. Here for a f/u Most recent lipid profile from: Lab Results Component Value Date TRIG 63 04/20/2024 TRIG 104 02/10/2023 CHOL 173 04/20/2024 CHOL 186 02/10/2023 LDLCHOLCAL 103 (H) 04/20/2024 LDLCHOLCAL 115 (H) 02/10/2023 HDL 58 04/20/2024 HDL 51 02/10/2023 she has actually managed to lower her cholesterol with Diet. For now will continue with current regimen. advised to try to adhere to a low cholesterol diet, counseled and educated about diet and exercise * Assessment & Plan Note - Melo Bermudez MD - 08/14/2024 1:47 PM EDT Associated Problem(s): Preventative health care Mammogram: 12/20/2023 Normal . Pap Smear: 05/25/2016 according to her report by midwives she was told there was no need to continue Colonoscopy: 07/2015 Dr Hines Vaccines: Pneumovax: 12/31/1999. Due when turns 63 Tdap: 05/24/2014 Zoster: 05/24/2014 Dexa scan: 01/26/2013 Normal. Will repeat * Assessment & Plan Note - Melo Bermudez MD - 08/14/2024 1:46 PM EDT Associated Problem(s): Hypothyroidism Pt here for a f/u Pt on Levothyroxine 100 mcg po daily. Thyroid US done 05/12/2016 showed 2 mm cyst in the right lobe unchanged Re-check Lab Results Component Value Date TSH 0.12 (L) 04/20/2024 Was suppressed, Levothyroxine was then lowered from 112 to 100 mcg Will repeat again documented in this encounter Plan of Treatment Scheduled Orders Name Type Priority Associated Diagnoses Orde r Schedule TSH with Reflex to Free T4 Lab Routine Hypothyroidism, unspecified type Ordered: 08/14/2024 BD DEXA Axial Imaging Routine Hypothyroidism, unspecified type Postmenopausal Ordered: 08/14/2024 T-SPOT??.TB Lab Routine Preventative health care Expected: 08/14/2024 (Approximate), Expires: 08/14/2025 documented as of this encounter Visit Diagnoses Diagnosis Hypothyroidism, unspecified type- Primary Postmenopausal Asymptomatic postmenopausal status (age-related) (natural) Mixed hyperlipidemia Class 1 obesity due to excess calories with serious comorbidity and body mass index (BMI) of 32.0 to 32.9 in adult Preventative health care Routine general medical examination at a health care facility Dietary counseling Dietary surveillance and counseling Exercise counseling Encounter for immunization documented in this encounter Additional Health Concerns Assessment Noted Time PHQ-9 Depression Total Score: 0 04/10/19 25 12:59 PM EST documented as of this encounter Care Teams Corporate Manager Relationship Specialty Start Date End Date Melo Grier MD [address] [place] [address] PCP - General Internal Medicine 10/19/13 documented as of this encounter
--- OUTSIDE RECORDS SUMMARY | 2024-08-14 15:31 | XMS_ITS | Encounter Summary ---
Author Organization [employer] Address [address] [place] [address] Care Team Providers Care Cash Room Clerk Name Role Phone Melo Grier MD Primary Care Provide r Encounter Details Date Type Department Care Team (Late st Contact Info) Description 12/07/2022 Orders Only [facility] [address] [place] [address] [phone] Gerard Colbert MD [address] [place], [place] [phone] Dysuria (Primary Dx); Hypothyroidism, unspecified type Social History Tobacco Use Types Packs/Day Years Used Date Smoking Tobacco: Never Passive Smoke Exposure: Never Smokeless Tobacco: Never Comments Unknown Sex and Gender Information Value Date Recorded Sex Assigned at Female 02/01/2022 10:14 AM EDT Legal Sex Female 10:14 AM EDT Gender Identity Female 02/01/2022 10:14 AM EDT Sexual Orientation Straight 02/01/2022 10 :14 AM EDT documented as of this encounter Plan of Treatment Scheduled Orders Name Type Priority Associated Diagnoses Orde r Schedule Culture, Urine, Routine Microbiology Routine Dysuria Expected: 12/07/2022 (Approximate), Expires: 12/08/2023 documented as of this encounter Procedures Procedure Name Priority Date/Time Associated Diagnosis Comments TSH W/REFLEX TO FT4 Routine 12/09/2022 3 :44 PM EDT Hypothyroidism, unspecified type documented in this encounter Results * (ABNORMAL) TSH W/Reflex to FT4 (12/09/2022 3:44 PM EDT) TSH reflex Free T4 5.97(H) 0.32 - 4.0 uIU/mL [facility] Blood 12/09/2022 3:44 PM EDT 12/09/2022 5:14 PM EDT us Gerard Colbert MD LAB BLOOD ORDERABLES Final Resul t Performing Organization Address City/State/[facility] Co de Phone Number [facility] [address] [place] [address] [phone] documented in this encounter Visit Diagnoses Diagnosis Dysuria- Primary Hypothyroidism, unspecified type documented in this encounter Care Teams Cash Room Clerk Relationship Specialty Start Date End Date Melo Grier MD [address] [place] [phone] PCP - General Internal Medicine 10/19/13 documented as of this encounter
--- OUTSIDE RECORDS SUMMARY | 2024-08-14 15:31 | XMS_ITS | Encounter Summary ---
Author Organization [employer] Address [address] [place] [address] Care Team Providers Care Corporate Operations Compliance Manager Name Role Phone Melo Grier MD Primary Care Provide r Reason for Visit * Reason Onset Date Comments chartprep 08/13/2024 Encounter Details Date Type Department Care Team ([facility] st Contact Info) Description 08/13/2024 Telephone [facility] [address] [place], [place] [phone] Melo Grier MD [address] [place], [place] [phone] chartprep Social History Tobacco Use Types Packs/Day Years [...] AM EDT documented as of this encounter Miscellaneous Notes * Telephone Encounter - Cat Bermudez [place] - 08/13/2024 3:07 PM EDT ..Chart Prep Labs: done Images: not applicable Vaccines due: Covid Due, Tdap Due, Flu Due, and RSV in Pharmacy Due Referrals: Not Applicable Screenings: Colonoscopy Overdue care gaps: Disability and Oral Health documented in this encounter Plan of Treatment Not on file documented as of this encounter Visit Diagnoses Not on filedocumented in this encounter Additional Health Concerns Assessment Noted Time PHQ-9 Depression Total Score: 0 04/10/19 25 12:59 PM EST documented as of this encounter Care Teams Corporate Operations Compliance Manager Relationship Specialty Start Date End Date Melo Grier MD [address] [place] [phone] PCP - General Internal Medicine 10/19/13 documented as of this encounter
--- OUTSIDE RECORDS SUMMARY | 2024-08-14 15:31 | XMS_ITS | Encounter Summary ---
Author Organization [employer] Address [address] 7[address] [place] [address] Care Team Providers Care Fur Polisher Name Role Phone Melo Grier MD Primary Care Provide r Reason for Visit * Reason Comments Med Refill Encounter Details Date Type Department Care Team ([facility] st Contact Info) Description 11/06/[address] [facility] [address] [place], [place] [phone] Melo Grier MD [address] [place] [address] Social History Tobacco Use Types Packs/Day Years [...] documented as of this encounter Care Teams Fur Polisher Relationship Specialty Start Date End Date Melo Grier MD [address] [place] [phone] PCP - General Internal Medicine 10/19/13 documented as of this encounter
--- OUTSIDE RECORDS SUMMARY | 2024-08-14 15:31 | XMS_ITS | Encounter Summary ---
Author Organization [employer] Address [address] 7[address] [place] [address] Care Team Providers Care Harness Puller Name Role Phone Melo Grier MD Primary Care Provide r Encounter Details Date Type Department Care Team (Late st Contact Info) Description 10/04/2022 Orders Only [facility] [address] [place] [address] Yanci Hernandez LPN Social History Tobacco Use [...] on filedocumented in this encounter Care Teams Harness Puller Relationship Specialty Start Date End Date Melo Grier MD [address] [place] [phone] PCP - General Internal Medicine 10/19/13 documented as of this encounter
--- OUTSIDE RECORDS SUMMARY | 2024-08-14 15:31 | XMS_ITS | Encounter Summary ---
Author Organization [employer] Address [address] [place] [address] Care Team Providers Care Triage Register Nurse Name Role Phone Melo Grier MD Primary Care Provide r Encounter Details Date Type Department Care Team (Late st Contact Info) Description 08/12/2022 Abstract [facility] [address] [place], [place] [phone] Melo Grier MD [address] [place], [place] [phone] Social History Tobacco Use Types Packs/Day Years [...] on file documented as of this encounter Procedures Procedure Name Priority Date/Time Associated Diagnosis Comments COLONOSCOPY Routine 07/17/2015 documented in this encounter Results * Colonoscopy (07/17/2015) Colonoscopy Normal Normal 07/17/2015 Narrative Claritza Rousseau - 07/17/2015 10:34 AM EDT Recommended 10 year follow up (see scanned notes) us Historical Provider HEALTH MAINTENANCE Edited Result - Final documented in this encounter Visit Diagnoses Not on filedocumented in this encounter Care Teams Triage Register Nurse Relationship Specialty Start Date End Date Melo Grier MD [address] [place] [phone] PCP - General Internal Medicine 10/19/13 documented as of this encounter
--- OUTSIDE RECORDS SUMMARY | 2024-08-14 15:31 | XMS_ITS | Encounter Summary ---
Author Organization [employer] Address [address] [facility] [address] [place] [address] Care Team Providers Care Commercial Hvac Technician Name Role Phone Melo Grier MD Primary Care Provide r Encounter Details Date Type Department Care Team (Latest Contact Info) Description 08/14/2024 Travel Social History Tobacco Use Types Packs/Day Years [...] documented as of this encounter Care Teams Commercial Hvac Technician Relationship Specialty Start Date End Date Melo Grier MD [address] [place] [phone] PCP - General Internal Medicine 10/19/13 documented as of this encounter
--- OUTSIDE RECORDS SUMMARY | 2024-08-14 15:31 | XMS_ITS | Encounter Summary ---
Author Organization [employer] Address [address] [place] [address] Care Team Providers Care Material Analyst Name Role Phone Melo Grier MD Primary Care Provide r Encounter Details Date Type Department Care Team (Late st Contact Info) Description 09/02/2022 Orders Only [facility] [address] [place], [place] [phone] Lisa Riddle LPN Social History Tobacco Use Types Packs/Day [...] on filedocumented in this encounter Care Teams Material Analyst Relationship Specialty Start Date End Date Melo Grier MD [address] [place] [address] PCP - General Internal Medicine 10/19/13 documented as of this encounter
--- OUTSIDE RECORDS SUMMARY | 2024-08-14 15:31 | XMS_ITS | Encounter Summary ---
Author Organization [employer] Address [address] [place] [address] Care Team Providers Care Hand Spring Former Name Role Phone Melo Grier MD Primary Care Provide r Reason for Visit * Reason Onset Date Comments Nurse Triage 08/08/2023 ER NOTES REQUEST 08/08/2023 Encounter Details Date Type Department Care Team ([facility] st Contact Info) Description 08/08/2023 Telephone [facility] [address] [place], [place] [phone] Meol Grier MD [address] [place], [place] [phone] Nurse Triage; ER NOTES REQUEST Social History Tobacco Use Types Packs/Day Years [...] encounter Miscellaneous Notes * Telephone Encounter - Charlee Van RN - 08/08/2023 1:35 PM EDT Please assist with obtaining discharge summary for [facility] ED visit on 08/06/2023 for provider review prior to upcoming appointment. Future Appointments Date Time Provider Department Center 08/08/2023 2:00 PM Zuri Rogers MD [facility] * Telephone Encounter - Charlee Van RN - 08/08/2023 1:20 PM EDT No [facility] ED Notes in Epic. Call returned to Marcia Diaz to triage below. Reports having been seen at [facility] ED for right knee pain. Per pt no meds given by ER. Per pt was advised to follow up with PCP for fluid removal. Per pt continues to have knee pain and swelling. Per pt only using oTC pain relievers. Pt agrees to sick appts today with team provider. Reviewed home care advise, ER precautions and reasons to call back. Protocol Used: Knee Pain (Adult) Protocol-Based Disposition: See in Office or Video Visit Today Future Appointments Date Time Provider Department Center 08/08/2023 2:00 PM Zuri Rogers MD [facility] Video visit offer not recorded Positive Triage Question: * Very swollen knee joint * All higher-acuity triage questions were negative Care Advice Discussed: * Reasons To Call Back - Signs of infection occur (e.g., spreading redness, warmth, fever) - You become worse * Telephone Encounter - Elana Shira - 08/08/2023 12:57 PM EDT Symptom: Knee Pain - Not From Injury Outcome: Schedule an appointment to be seen within 24 hours Reason: Caller denied all higher acuity questions The caller accepted this outcome Pt inform went to [facility] er on 08/06/23 and was inform has to come to pcp office to remove the liquid from the knee . documented in this encounter Plan of Treatment Not on file documented as of this encounter Visit Diagnoses Not on filedocumented in this encounter Additional Health Concerns Assessment Noted Time PHQ-9 Depression Total Score: 0 02/11/20 23 1:13 PM EST documented as of this encounter Care Teams Hand Spring Former Relationship Specialty Start Date End Date Melo Grier MD [address] [place] [address] PCP - General Internal Medicine 10/19/13 documented as of this encounter
--- OUTSIDE RECORDS SUMMARY | 2024-08-14 15:31 | XMS_ITS | Encounter Summary ---
Author Organization [employer] Address [address] [place] [address] Care Team Providers Care Surgeon Chief Name Role Phone Melo Grier MD Primary Care Provide r Encounter Details Date Type Department Care Team (Late st Contact Info) Description 06/30/2022 Orders Only [facility] MED & PEDS [address] [place] [address] Yanci Hernandez LPN Social History Tobacco Use [...] on filedocumented in this encounter Care Teams Surgeon Chief Relationship Specialty Start Date End Date Melo Grier MD [address] [place] [phone] PCP - General Internal Medicine 10/19/13 documented as of this encounter
--- OUTSIDE RECORDS SUMMARY | 2024-08-14 15:31 | XMS_ITS | Clinical Summary ---
Author Organization [employer] Address [address] [place] [address] Care Team Providers Care Sales Support Consultant Name Role Phone Melo Grier MD Primary Care Provide r Allergies Active Allergy Reactions Criticality Noted Date Comments Fish Allergy 05/11/2016 Tramadol 05/11/2016 Medications albuterol 108 (90 Base) MCG/ACT inhalerIndication s:Mild intermittent asthma without complication INHALE 2 PUFFS BY MOUTH EVERY 4 TO 6 HOURS NEEDED 8.5 g 3 2 Active Multiple Vitamins-Minerals (CertaVite/Antiox idants) tabletIndications :Other fatigue TAKE 1 TABLET BY MOUTH EVERY MORNING 90 tablet 3 4 Active cholecalciferol (Vitamin D-3) 10 MCG (400 UNIT) tablet TAKE 1 TABLET BY MOUTH EVERY MORNING 90 tablet 3 4 Active omeprazole (PriLOSEC) [address] capsuleIndication s:Gastroesophagea l reflux disease without esophagitis TAKE 1 CAPSULE BY MOUTH EVERYDAY AT NOON BEFORE MEALS 90 capsule 1 4 Active loratadine (Claritin) 10 MG tablet TAKE 1 TABLET BY MOUTH EVERY MORNING 90 tablet 1 5 Active levothyroxine (Synthroid) 100 MCG tabletIndications :Hypothyroidism, unspecified type Take 1 tablet (100 mcg) by mouth before breakfast. 30 tablet 6 5 Active meloxicam (Mobic) 15 MG tablet TAKE 1 TABLET ONCE DAILY 30 tablet 3 5 Active amitriptyline (Elavil) 50 MG tabletIndications :Primary insomnia TAKE 1 TABLET BY MOUTH AT BEDTIME 30 tablet 3 5 Active Active Problems Problem Noted Date Diagnosed Date Vaginal atrophy 04/10/2024 Assessment & Plan (04/10/2024 1:12 PM EST): Pt is on Estrace prescribed by Urology Osteoarthritis of right knee 08/09/2023 Assessment & Plan (11/17/2023 12:46 PM EDT): Pt here for a follow up, seen in the ER. Right knee XR 08/2023 showed : right knee reporting Bone alignment is normal. No fracture or dislocation. Small osteophytes at the medial femoral tibial joint. Joint spaces are otherwise normal. Moderate to large joint effusion.Degenerative changes at the medial femoral tibial joint and joint effusion. Here exam was consistent w OA Seen by community outreach specialist at [facility] [place] 10/2023 received steroid injection. Uses tylenol prn and diclofenac topical prn Assessment & Plan (08/09/2023 1:23 PM EDT): -Right knee XR 08/2023: right knee reporting Bone alignment is normal. No fracture or dislocation. Small osteophytes at the medial femoral tibial joint. Joint spaces are otherwise normal. Moderate to large joint effusion.Degenerative changes at the medial femoral tibial joint and joint effusion. -02/2023 Chem wnl Here exam is consistent w OA w cracking and pt reports hx of locking ,no signs of infection -referred to orthopedic today --states used to f at [facility] -states Dt [facility] ? -requested today to referral sp to referred pt there -tylenol prn -diclofenac topical prn Preventative health care 02/10/2023 Assessment & Plan (08/14/2024 1:47 PM EDT): Mammogram: 12/20/2023 Normal . Pap Smear: 05/25/2016 according to her report by midwives she was told there was no need to continue Colonoscopy: 07/2015 Dr Hines Vaccines: Pneumovax: 12/31/1999. Due when turns 63 Tdap: 05/24/2014 Zoster: 05/24/2014 Dexa scan: 01/26/2013 Normal. Will repeat Assessment & Plan (11/17/2023 12:49 PM EDT): Mammogram: 10/22/2022 Normal . Ordered a repeat. Pap Smear: 05/25/2016 according to her report by midwives she was told there was no need to continue Colonoscopy: 07/2015 Dr Hines Vaccines: Pneumovax: 12/31/1999. Due when turns 63 Tdap: 05/24/2014 Zoster: 05/24/2014 Dexa scan: 01/26/2013 Normal. Assessment & Plan (02/10/2023 1:16 PM EST): Mammogram: 10/22/2022 Normal Pap Smear: 05/25/2016 according to her report by midwives she was told there was no need to continue Colonoscopy: 07/2015 Dr Hines Vaccines: Flu shot: 02/10/2023 Pneumovax: 12/31/1999. Due when turns 63 Tdap: 05/24/2014 Zoster: 05/24/2014 Dexa scan: 01/26/2013 Normal. History of gastric surgery 12/02/2022 Chronic low back pain 10/27/2017 02/10/2023 Assessment & Plan (02/10/2023 1:07 PM EST): Pt with chronic persistent back pain from her neck down Patient received PT in the past at [facility] Of note Pt has a Hx right sided low back pain with radiation to her hip and her knee as well as her lower leg. likely radiculitis. Now being followed by [facility]. Last seen 10/29/2014 MRI Lumbar Spine was done 07/17/2015 and showed: spondylosis, right foraminal disc protrusion L3-L4 with ? mass effect on L3. Pt will continue to follow at [facility] Chronic thoracic back pain 10/27/201702/10 Mild intermittent asthma 04/15/2016 023 Assessment & Plan (02/10/2023 1:04 PM EST): Here for a f/u Pt reports no recent exacerbation PFT exam done on 02/06/2014 read as Normal. Methacholine challenge test done on 09/03/2014 was POSITIVE Patient has been advised to continue with current regimen of: Pro-Air prn Hypothyroidism 03/13/2012 Assessment & Plan (08/14/2024 1:46 PM EDT): Pt here for a f/u Pt on Levothyroxine 100 mcg po daily. Thyroid US done 05/12/2016 showed 2 mm cyst in the right lobe unchanged Re-check Lab Results Component Value Date TSH 0.12 (L) 04/20/2024 Was suppressed, Levothyroxine was then lowered from 112 to 100 mcg Will repeat again Assessment & Plan (04/10/2024 1:01 PM EST): Pt here for a f/u Pt on Levothyroxine 112 mcg po daily. Thyroid US done 05/12/2016 showed 2 mm cyst in the right lobe unchanged Repeat TSH 11/01/2023 was suppressed, Levothyroxine was lowered as a result. Will recheck Lab Results Component Value Date TSH 0.01 (L) 11/01/2023 Assessment & Plan (11/17/2023 12:48 PM EDT): Pt here for a f/u Pt on Levothyroxine 112 mcg po daily. Thyroid US done 05/12/2016 showed 2 mm cyst in the right lobe unchanged Repeat TSH 11/01/2023 was suppressed, Levothyroxine was lowered as a result. Will recheck in 3 months. Assessment & Plan (07/12/2023 2:26 PM EDT): Pt here for a f/u last TSH 02/10/2023 was slightly suppressed Pt on Levothyroxine 125 mcg po daily. Thyroid US done 05/12/2016 showed 2 mm cyst in the right lobe unchanged Plan: Repeat TSH and Free T4. If still suppressed will decrease the dose Assessment & Plan (02/10/2023 1:14 PM EST): Pt here for a f/u last TSH 12/09/2022 was slightly elevated 5.97 Pt on Levothyroxine 125 mcg po daily. Pt reports that she had forgotten to take her medications every now and then Thyroid US done 05/12/2016 showed 2 mm cyst in the right lobe unchanged Plan: Repeat TSH and Free T4 6 month f/u Mixed hyperlipidemia 03/13/2012 Assessment & Plan (08/14/2024 1:48 PM EDT): Patient with elevated lipids. Here for a [...] counseled and educated about diet and exercise Assessment & Plan (04/10/2024 1:03 PM EST): Patient with elevated lipids. Here for a f/u Most recent lipid profile from: Lab Results Component Value Date TRIG 104 02/10/2023 CHOL 186 02/10/2023 LDLCHOLCAL 115 (H) 02/10/2023 HDL 51 02/10/2023 she has actually managed to lower her cholesterol with Diet. For now will continue with current regimen. Repeat Lipid profile advised to try to adhere to a low cholesterol diet, counseled and educated about diet and exercise Assessment & Plan (02/10/2023 1:09 PM EST): Patient with elevated lipids. Here for a f/u Most recent lipid profile from: 11/06/2021 shows a total cholesterol of: 202 triglycerides of: 110 HDL of: 55 and LDL of: 125 she has actually managed to lower her cholesterol with Diet. For now will continue with current regimen. Repeat Lipid profile advised to try to adhere to a low cholesterol diet, counseled and educated about diet and exercise Gastroesophageal reflux disease 03/13/2012 Anemia 03/13/2012 02/10/2023 Migraine 03/13/2012 02/10/2023 Class 1 obesity due to exces s calories with serious comorbidity and body mass index (BMI) of 32.0 to 32.9 in adult 03/13/2012 02/10/2023 Assessment & Plan (08/14/2024 1:49 PM EDT): Dietary Recommendations: Fruits, vegetables, whole grains, protein foods, and fat-free or low-fat dairy products are healthy choices. Eat different types of protein foods in your diet. This can include seafood, lean meats, poultry, beans, peas, lentils, nuts, seeds, soy products, and eggs. Limit foods and beverages higher in added sugars, saturated fat, and sodium. Exercise Recommendations: At least 150 minutes of moderate-intensity physical activity per week, or an equivalent combination of moderate- and vigorous-intensity activity Assessment & Plan (04/10/2024 1:00 PM EST): Dietary Recommendations: Fruits, vegetables, whole grains, protein foods, and fat-free or low-fat dairy products are healthy choices. Eat different types of protein foods in your diet. This can include seafood, lean meats, poultry, beans, peas, lentils, nuts, seeds, soy products, and eggs. Limit foods and beverages higher in added sugars, saturated fat, and sodium. Exercise Recommendations: At least 150 minutes of moderate-intensity physical activity per week, or an equivalent combination of moderate- and vigorous-intensity activity Assessment & Plan (11/17/2023 1:15 PM EDT): Patient has been counseled and educated about diet and exercise. Personal goal of weight loss discussedPatient has comorbidity of: Asthma Pt would like to be referred to plastic surgery for removal of excess skin Assessment & Plan (07/12/2023 2:27 PM EDT): Patient has been counseled and educated about diet and exercise. Personal goal of weight loss discussedPatient has comorbidity of: Asthma Assessment & Plan (02/10/2023 1:10 PM EST): Patient has been counseled and educated about diet and exercise. Personal goal of weight loss discussedPatient has comorbidity of: Asthma Right bundle branch block 03/13/20122022 Encounters Date Type Department Care Team Description 08/14/2024 2:15 PM EDT Office Visit [address] [address] Melo Grier MD Hypothyroidism, unspecified type (Primary Dx); Postmenopausal; Mixed hyperlipidemia; Class 1 obesity due to excess calories with serious comorbidity and body mass index (BMI) of 32.0 to 32.9 in adult; Preventative health care; Dietary counseling; Exercise counseling; Encounter for immunization 08/14/2024 Travel 08/13/2024 Telephone [facility] [address] [place], [place] [phone] Melo Grier MD chartprep 06/24/2024 Refill [facility] & PEDS [address] [place], [place] [phone] Melo Grier MD Primary insomnia from Last 3 Months Immunizations Name Administration Dates Next Due Influenza High-dose Quadrivalent Preservative Fr ee 02/10/2023,02/05/2021 Influenza injectable quadrivalent preservative f ree 02/16/2022,06/27/2018 Influenza, High Dose Seasonal, Preservative Free 04/12/2019 Influenza, IIV3, injectable 01/03/2014, 1 Pneumococcal Conjugate PCV 20 07/12/2023 Pneumococcal Polysaccharide PPSV23 12/31/1999 TD (adult), 2 Lf tetanus tox oid, preservative free, adsorbed 12/31/1999 Tdap 08/14/2024,05/24/2014 Zoster, Recombinant 11/13/2021,08/11/2021 Zoster, live 05/24/2014 Social History Tobacco Use Types Packs/Day Years [...] Orientation Straight 02/01/2022 10 :14 AM EDT Last Filed Vital Signs Vital Sign Reading [...] Mass Index 32.56 08/14/2024 1:57 PM EDT Plan of Treatment Health Maintenance Due Date Last Done Comments CT Colonography 1955 FIT DNA/Cologuard 1955 FIT 1955 FOBT 1955 Sigmoidoscopy 1955 RSV Patients and Patients Aged 60 years or older (1 - Risk 60-74 years 1-dose series) 2013 COVID-19 Vaccine ( season) 2023 04/24/2021, 08/26/2020, 07/29/2020 Influenza Vaccine (#1) 2023 , 02/16/2022, 02/05/2021, Additional history exists Mammogram 12/19/2024 12/20/2023, 07/2 04/2022, 11/25/2020, Additional history exists SDOH Screening 03/29/2025 03/29/2024 Alcohol/Substance Use Screening 04/10/2025 04/10/2024 Depression Screening 04/10/2025 04/10/2024, 04/10/19 25 Colonoscopy 07/16/2025 07/17/2015 Colorectal Cancer Screening 07/16/2025 Tobacco Screening 08/14/2025 08/14/2024 Lipid Panel 04/20/2029 04/20/2024, 11/0 12/2022, 11/06/2021, Additional history exists DTaP/Tdap/Td Vaccines (3 - Td or Tdap) 08/14/2034 08/14/2024, 05/24/2014, 12/31/1999 Hepatitis C Screening Completed 11/06/2021 Zoster Vaccines Completed 11/13/2021, 08/02, 05/24/2014 Pneumococcal Vaccine: 50+ Years Completed 07/12/2023, 12/31/1999 HIB Vaccines Aged Out No longer eligi [...] patient's age to complete this topic Meningococcal Vaccine Aged Out No bailey thu eligible based on patient's age to complete this topic RSV under 20 months Aged Out No longe r eligible based on patient's age to complete this topic Rotavirus Vaccines Aged Out No longer eligible based on patient's age to complete this topic Procedures Procedure Name Priority Date/Time Associated Diagnosis Comments LIPID PANEL, STANDARD Routine 04/20/2024 10:38 AM EST Mixed hyperlipidemia BI MAMMOGRAM SCREENING TOMOSYNTHESIS BILATERAL Routine 12/20/2023 1:30 PM EDT Encounter for screening mammogram for malignant neoplasm of breast ZZZ HISTORICAL HEPATITIS C AB W/REFL TO HCV RNA, QN, PCR Routine 11/06/2021 11:15 AM EDT HM COLONOSCOPY Routine 07/17/2015 from Last 3 Months or Most Recently Relevant to Health Maintenance Results * (ABNORMAL) Lipid Panel, Standard (04/20/2024 10:38 AM EST) Triglycerides 63 <150 mg/dL [facility] Comment:Desirable Triglyceri de: less than 150 mg/dLBorderline High Triglyceride 150-199 mg/dLHigh Triglyceride: 200-499 mg/dLVery High Triglyceride: greater than or equal to 5OO mg/dL Cholesterol 173 <200 mg/dL [facility] Comment:Desirable Cholestero l: less than 200 mg/dLBorderline High Cholesterol: 200-239 mg/dLHigh Cholesterol: greater than 239 mg/dL LDL Cholesterol Calculated 103(H) <100 mg/dL [facility] Comment:Desirable LDL: less than 100 mg/dLNear Optimal/Above Optimal LDL: 110- 129 mg/dLBorderline High LDL: 130-159 mg/dLHigh LDL: 160-189 mg/dLVery High LDL: greater than or equal to 190 mg/dL HDL Cholesterol 58 >40 mg/dL [facility] Comment:Desirable HDL: great er than 40 mg/dL Note: This HDL assay may give artificially low results in patients with liver disease. Blood Venous blood specimen / Unknown 04/20/2024 10:38 AM EST 04/20/2024 11:28 AM EST us Melo Bermudez MD LAB BLOOD ORDERABLES Final Result [facility] [address] [place] [phone] * BI Mammogram Screening Tomosynthesis Bilateral (12/20/2023 1:30 PM EDT) Anatomical Region Laterality Modality Breast Bilateral Mammography 12/20/2023 1:30 PM EDT Narrative 01/02/2024 6:52 PM EDT ? [facility] [place] ? [address] ?[place] [address] ? Mammography Report ? Signed ? Patient: Joe,Marcia M ?MR#: [id number] ?? 1 ? : 1955 ?Acct:[id number] ? Age/Sex: 68 / F ?ADM Date: 12/20/23 ? Loc: HO.MAMMO ? Attending Dr: Melo Rice MD ? Ordering Physician: Melo Rice MD ?Resu ?? lts: 2Benign Findings ? Date of Service: 12/20/23 ?Follow Up: 1 Year From Orig ?? inal Mammogram ? Procedure(s): MM tomosynthesis screening BI ?? Accession Number(s): [id number] ? cc: Melo Rice MD ? EXAMINATION: ?? MM SCREENING DIGITAL BREAST TOMOSYNTHESIS, BILATERAL ? CLINICAL INFORMATION: ? Screening. Asymptomatic. ? COMPARISON: ?? Mammography: Comparison is made with available priors ? TECHNIQUE: ?? Digital breast mammography with tomosynthesis is performed in both the ?? craniocaudal and mediolateral oblique views along with computer-aided ?? detection (CAD). ? FINDINGS: ?? There are scattered areas of fibroglandular density (ACR BI-RADS breast ?? composition Category b). ?? Bilateral reduction mammoplasty. ?? There are no significant masses, abnormal calcifications, or other ?? abnormalities. ? MM/MM tomosynthesis screening BI ?? IMPRESSION: ?? No mammographic evidence of malignancy. ? ASSESSMENT: ? BI-RADS BI-RADS 2 - Benign Findings ? RECOMMENDATION: ?? Routine annual mammography screening. ? 1 year F/U ? This examination should not preclude the clinical evaluation of a ?? suspicious palpable abnormality. ? This patient's information was entered into a reminder system with a ?? target due date for their next mammogram. ? Electronically signed by: ??Rosaura Dumont DO ??01/02/2024 06:50 PM EDT ?? RP ? Dictated By: ?Rosaura Dumont DO ? Signed By: ?<Electronically signed by Rosaura Dumont, in OV> ? 01/02/24 1850 ? DD/ 1330 ? TD/TT: 12/20/23 1340 ? Shooter Helper: ? Procedure Note Shady, Image - 01/02/2024 [facility] [address] [place], [place] [address] Mammography Report Signed Patient: Marcia Diaz MMR#: [id number] 1 : 3Acct:[id number] Age/Sex: 68 / FADM Date: 12/20/23 Loc: [facility] Attending Dr: Melo Rice MD Ordering Physician: Melo Rice MDResu lts: 2Benign Findings Date of Service: 12/20/23Follow Up: 1 Year From Orig inal Mammogram Procedure(s): MM tomosynthesis screening BI Accession Number(s): [id number] cc: Melo Rice MD EXAMINATION: MM SCREENING DIGITAL BREAST TOMOSYNTHESIS, BILATERAL CLINICAL INFORMATION: Screening. Asymptomatic. COMPARISON: Mammography: Comparison is made with available priors TECHNIQUE: Digital breast mammography with tomosynthesis is performed in both the craniocaudal and mediolateral oblique views along with computer-aided detection (CAD). FINDINGS: There are scattered areas of fibroglandular density (ACR BI-RADS breast composition Category b). Bilateral reduction mammoplasty. There are no significant masses, abnormal calcifications, or other abnormalities. MM/MM tomosynthesis screening BI IMPRESSION: No mammographic evidence of malignancy. ASSESSMENT: BI-RADS BI-RADS 2 - Benign Findings RECOMMENDATION: Routine annual mammography screening. 1 year F/U This examination should not preclude the clinical evaluation of a suspicious palpable abnormality. This patient's information was entered into a reminder system with a target due date for their next mammogram. Electronically signed by: Rosaura Dumont DO 01/02/2024 06:50 PM EDT RP Dictated By: Rosaura Dumont DO Signed By: <Electronically signed by Rosaura Dumont DO in OV> 01/02/24 1850 DD/ 1330 TD/TT: 12/20/23 1340 Shooter Helper: us Melo Bermudez MD IMG BI PROCEDURES Fin al Result * HEPATITIS C AB W/REFL TO HCV RNA, QN, PCR (11/06/2021 11:15 AM EDT) HEPATITIS C ANTIBODY NON-REACT [facility] NON-REACT [facility] INDEX 0.11 <1.00 [facility] Comment: ?? HCV antibody was non-reactive. There is no laboratory ?? evidence of HCV infection. ?? In most cases, no further action is required. However, if recent HCV exposure is suspected, a test for HCV RNA (test code 55239) is suggested. ?? For additional information please refer to http://education.[employer]ting Edge Information/faq/GHF52x8 (This link is being provided for informational/ educational purposes only.) ?? 11/06/2021 11:1 5 AM EDT us Melo Bermudez MD HISTORICAL/NON ORDERA BLE LABS Final Result [facility] [address] * Hm Colonoscopy (07/17/2015) Colonoscopy Normal Normal 07/17/2015 Claritza Vang - 07/17/2015 10:34 AM EDT Recommended 10 year follow up (see scanned notes) us Historical Provider HEALTH MAINTENANCE Edited Result - Final from Last 3 Months or Most Recently Relevant to Health Maintenance [place] [address] [place] [address] [facility] [address] [place] [address] [place] [address] [place] [address] [place] [address] Care Teams Sales Support Consultant Relationship Specialty Start Date End Date Melo Grier MD [address] [place] [phone] PCP - General Internal Medicine 10/19/13
[2024-08-14 16:56] LABS: TSH reflex Free T4 1.59 uIU/mL (0.32-4.0)
[2024-08-16 23:33] LABS: TS Negative Control Passed; TS Panel A 0; TS Panel B 0; TS Positive Control Passed; TSpotTB Negative (Negative)
== END 2024-08-14 14:19 | disposition home or self-care (01) ==
LOC: HO.HHCL 14:18
PROVIDERS: Visit Provider Internal Medicine
DX: E03.9 Hypothyroidism, unspecified (principal); Z00.00 Encounter for general adult medical examination without abnormal findings
CPT/HCPCS: 36415; 84443; 86481

== ENCOUNTER 2024-09-20 11:13 | Outpatient (REF) | payer OTHER, SELFPAY ==
--- NOTE | ~2024-09-20 | MM_ITS ---
EXAMINATION: DXA BONE DENSITY AXIAL HISTORY: postmenopausal TECHNIQUE: Clifford Thames Dual energy absorptiometry (DEXA) of the lumbar spine, total left hip, and femoral neck was performed. COMPARISON: Comparison is made with the prior examination dated 01/26/2013. FINDINGS: The bone mineral density of the lumbar spine is 1.157, corresponding to a T-score of -0.2, and a Z-score of 1.0. This is indicative of normal bone mineral density. This represents a BMD change of -8.3% compared to the prior exam. This is statistically significant. The bone mineral density of the left total hip is 1.089, corresponding to a T-score of 0.6, and a Z-score of 1.8. This is indicative of normal bone mineral density. This represents a BMD change of -17.6% compared to the prior exam. This is statistically significant. The bone mineral density of the left femoral neck is 1.068, corresponding to a T-score of 0.2, and a Z-score of 1.6. This is indicative of normal bone mineral density. This represents a BMD change of -11.7% compared to the prior exam. MM/XR DEXA axial skeleton IMPRESSION: Based on bone mineral density, and according to World Health Organization (WHO) criteria, the diagnosis is consistent with normal bone mineral density. All bone density values are in grams per centimeter squared (g/cm2). Statistically, 68% of repeat scans fall within 1 SD (+/- 0.010 g/cm2 for AP spine L1-L4) and 1 SD (+/- 0.012 g/cm2 for femur total) FRAX is a trademark of the [employer]'s [employer] Met[employer] Disease, a World Health Organization (WHO) Collaborating Center. Electronically signed by: Wm Izaguirre MD 09/24/2024 07:08 AM EDT
--- OUTSIDE RECORDS SUMMARY | 2024-09-20 12:44 | XMS_ITS | Clinical Summary ---
Author Organization [facility] Address [address] [place] [address] Care Team Providers Care Web Press Jogger Name Role Phone Melo Rice MD Primary Care Provi [facility] Surgical History Surgery Date Site/Laterality Comments BARIATRIC SURGERY 07/07/2016 PROCEDURE: MO LAPS GSTRC RSTRICTIV PX LONGITUDINAL GASTRECTOMY LAPAROSCOPIC [...] age to complete this topic Care Teams Web Press Jogger Relationship Specialty Start Date End Date Melo Rice MD [address] [place] [address] [facility] [place] [phone] PCP - General 03/17/07
== END 2024-09-20 11:14 | disposition home or self-care (01) ==
LOC: HO.MAMMO 11:13
PROVIDERS: PCP Internal Medicine; Visit Provider Internal Medicine
DX: Z13.820 Encounter for screening for osteoporosis (principal); Z78.0 Asymptomatic menopausal state; E03.9 Hypothyroidism, unspecified
CPT/HCPCS: 77080

== ENCOUNTER → 2024-09-20 11:30 | Outpatient (BNV) | payer OTHER, SELFPAY | PROVIDERS: PCP Internal Medicine; Visit Provider Radiology Diagnostic Radiology | DX: E28.39 Other primary ovarian failure (principal) | CPT/HCPCS: 77080 ==

== ENCOUNTER 2024-12-28 10:51 | Outpatient (REF) | payer OTHER, SELFPAY ==
--- NOTE | ~2024-12-28 | MM_ITS ---
EXAMINATION: MM SCREENING DIGITAL BREAST TOMOSYNTHESIS, BILATERAL CLINICAL INFORMATION: Screening. Asymptomatic. COMPARISON: Mammography: Comparison is made with available priors TECHNIQUE: Digital breast mammography with tomosynthesis is performed in both the craniocaudal and mediolateral oblique views along with computer-aided detection (CAD). FINDINGS: There are scattered areas of fibroglandular density. Bilateral reduction mammoplasty. There are no significant masses, abnormal calcifications, or other abnormalities. MM/MM tomosynthesis screening BI IMPRESSION: No mammographic evidence of malignancy. ASSESSMENT: BI-RADS Category 2: Benign RECOMMENDATION: Routine annual mammography screening. 1 year F/U This examination should not preclude the clinical evaluation of a suspicious palpable abnormality. This patient's information was entered into a reminder system with a target due date for their next mammogram. Electronically signed by: Rosaura Dumont DO 12/31/2024 05:35 PM EDT
--- OUTSIDE RECORDS SUMMARY | 2024-12-28 12:35 | XMS_ITS | Encounter Summary ---
Author Organization [employer] Address [address] [place] [address] Care Team Providers Care Steamer Gum Candy Name Role Phone Melo Grier MD Primary Care Provide r Encounter Details Date Type Department Care Team (Late st Contact Info) Description 05/31/2022 Orders Only [facility] [address] [place] [address] Yanci Hernandez LPN Social History Tobacco Use [...] on filedocumented in this encounter Care Teams Steamer Gum Candy Relationship Specialty Start Date End Date Melo Grier MD [address] [place] [phone] PCP - General Internal Medicine 10/19/13 documented as of this encounter
--- OUTSIDE RECORDS SUMMARY | 2024-12-28 12:35 | XMS_ITS | Clinical Summary ---
Author Organization [facility] Address [address] [place] [address] Care Team Providers Care Laborer Heading Name Role Phone Melo Rice MD Primary Care Provi [facility] Surgical History Surgery Date Site/Laterality Comments BARIATRIC SURGERY 07/07/2016 PROCEDURE: DE LAPS GSTRC RSTRICTIV PX LONGITUDINAL GASTRECTOMY LAPAROSCOPIC [...] 2003 Zoster Vaccines (1 of 2) 2003 Depression Screening 04/04/2024 COVID-19 Vaccine (1 - 2023-2 5 season) 2024 Influenza Vaccine (#1) 2024 RSV Immunization Adult Patie nts (1 [...] age to complete this topic Care Teams Laborer Heading Relationship Specialty Start Date End Date Melo Rice MD [address] [place] [address] [facility] [place] [phone] PCP - General 03/17/07
--- OUTSIDE RECORDS SUMMARY | 2024-12-28 12:35 | XMS_ITS | Clinical Summary ---
Author Organization [employer] Address [address] [facility] 7t [place] [address] Care Team Providers Care Corral Boss Name Role Phone Melo Grier MD Primary Care Provide r Allergies Active Allergy Reactions Criticality Noted Date Comments Fish Allergy 05/11/2016 Tramadol 05/11/2016 Medications albuterol 108 (90 Base) MCG/ACT inhalerIndicatio ns:Mild intermittent asthma without complication INHALE 2 PUFFS BY MOUTH EVERY 4 TO 6 HOURS NEEDED 8.5 g 3 03/23/20 22 Active meloxicam (Mobic) 15 MG tablet TAKE 1 TABLET ONCE DAILY 30 tablet 3 06/27/19 25 Active Multiple Vitamins-Mineral s (CertaVite/Antio xidants) tabletIndication s:Other fatigue TAKE 1 TABLET BY MOUTH EVERY MORNING 90 tablet 3 08/25/19 25 Active cholecalciferol (Vitamin D-3) 10 MCG (400 UNIT) tablet TAKE 1 TABLET BY MOUTH EVERY MORNING 90 tablet 3 09/26/19 25 Active omeprazole (PriLOSEC) [address] capsuleIndicatio ns:Gastroesophag eal reflux disease without esophagitis TAKE 1 CAPSULE BY MOUTH EVERYDAY AT NOON BEFORE MEALS 90 capsule 3 09/26/19 25 Active loratadine (Claritin) 10 MG tablet TAKE 1 TABLET BY MOUTH EVERY MORNING 90 tablet 1 10/31/19 25 Active amitriptyline (Elavil) 50 MG tabletIndication s:Primary insomnia TAKE 1 TABLET BY MOUTH AT BEDTIME 30 tablet 3 11/16/19 25 Active levothyroxine (Synthroid, Levoxyl) 100 MCG tabletIndication s:Hypothyroidism , unspecified type TAKE 1 TABLET BY MOUTH EVERY MORNING 30 tablet 6 12/21/19 25 Active levothyroxine (Synthroid) 100 MCG tabletIndication s:Hypothyroidism , unspecified type Take 1 tablet (100 mcg) by mouth before breakfast. 30 tablet 6 04/26/19 25 025 Discontinued Active Problems Problem Noted Date Diagnosed Date [...] exam was consistent w OA Seen by auto radiator specialist at [facility] 10/2023 received steroid injection. Uses tylenol prn [...] orthopedic today --states used to f at [place] -states Dt [place] ? -requested today to referral sp to [...] Patient received PT in the past at [facility] Of note Pt has a Hx right sided low back pain with radiation to her hip and her knee as well as her lower leg. likely radiculitis. Now being followed by [facility]. Last seen 10/29/2014 MRI Lumbar Spine was done 07/17/2015 and showed: spondylosis, right foraminal disc protrusion L3-L4 with ? mass effect on L3. Pt will continue to follow at [facility] Chronic thoracic back pain 10/27/201702/10 Mild [...] Encounters Date Type Department Care Team Description 12/20/2024 Refill [facility] MEDICINE [address] [facility] [place] [address] Melo Grier MD Hypothyroidism, unspecified type 11/15/2024 Refill [facility] [address] [facility] [place], [place] [phone] Melo Grier MD Primary insomnia 10/29/2024 Refill [facility]EDS [address] [place] [address] Melo Grier MD from Last 3 Months Immunizations Immunization Administration Dates Next Due Influenza High-dose Quadrivalent [...] 71 08/14/2024 1:57 PM EDT Temperature 36.4 C (97.6 F) 08/14/2024 1:57 PM EDT Respiratory Rate 20 08/14/2024 1:57 PM EDT [...] 1-dose series) 2013 COVID-19 Vaccine ( season) 2024 04/24/2021, 08/26/2020, 07/29/2020 Influenza Vaccine (#1) 2024 , 02/16/2022, 02/05/2021, Additional history exists Mammogram 12/19/2024 12/20/2023, 10/03, 11/25/2020, Additional history exists SDOH Screening 03/29/2025 03/29/2024 Alcohol/Substance Use Screening 04/10/2025 04/10/2024 Depression Screening 04/10/2025 04/10/2024, 04/10/19 25 Colonoscopy 07/16/2025 07/17/2015 Colorectal Cancer Screening 07/16/2025 Tobacco Screening 08/14/2025 08/14/2024 Lipid Panel 04/20/2029 04/20/2024, 12/2022, 11/06/2021, Additional history exists DTaP/Tdap/Td Vaccines [...] 10:38 AM EST) Triglycerides 63 <150 mg/dL [facility] Comment:Desirable Triglyceri de: less than 150 mg/dLBorderline High Triglyceride 150-199 mg/dLHigh Triglyceride: 200-499 mg/dLVery High Triglyceride: greater than or equal to 5OO mg/dL Cholesterol 173 <200 mg/dL [facility] Comment:Desirable Cholestero l: less than 200 mg/dLBorderline High Cholesterol: 200-239 mg/dLHigh Cholesterol: greater than 239 mg/dL LDL Cholesterol Calculated 103(H) <100 mg/dL [facility] Comment:Desirable LDL: less than 100 mg/dLNear Optimal/Above Optimal LDL: 110- 129 mg/dLBorderline High LDL: 130-159 mg/dLHigh LDL: 160-189 mg/dLVery High LDL: greater than or equal to 190 mg/dL HDL Cholesterol 58 >40 mg/dL [facility] Comment:Desirable HDL: great er than 40 mg/dL Note: This HDL assay may give artificially low results in patients with liver disease. Blood Venous blood specimen / Unknown 04/20/2024 10:38 AM EST 04/20/2024 11:28 AM EST us Melo Bermudez MD LAB BLOOD ORDERABLES Final Result [facility] [address] [place] [phone] * BI Mammogram Screening Tomosynthesis Bilateral (12/20/2023 1:30 PM EDT) Anatomical Region Laterality Modality Breast Bilateral Mammography 12/20/2023 1:30 PM EDT Narrative 01/02/2024 6:52 PM EDT Gurdeep [facility] [address] [place], [place] [address] Mammography Report Signed Patient: Marcia Diaz MR#: [id number] 1 : 1955 Acct:[id number] Age/Sex: 68 / F ADM Date: 12/20/23 Loc: HO.MAMMO Attending Dr: Melo Rice MD Ordering Physician: Melo Rice MD Resu lts: 2Benign Findings Date of Service: 12/20/23 Follow Up: 1 Year From Orig inal Mammogram Procedure(s): MM tomosynthesis screening BI Accession Number(s): [id number] cc: Melo Rice MD EXAMINATION: MM SCREENING [...] Rosaura Dumont DO 01/02/2024 06:50 PM EDT Dictated By: Rosaura Dumont DO Signed By: <Electronically signed by Rosaura Dumont DO in OV> 01/02/24 1850 DD/ 1330 TD/TT: 12/20/23 1340 Special Effects Person: Procedure Note Donotuseinterpreter, Image - 01/02/2024 Gurdeep [facility] [address] [place], [place] [address] Mammography Report Signed Patient: Marcia Diaz MMR#: [id number] 1 : 1955cct:[id number] Age/Sex: 68 / FADM Date: 12/20/23 Loc: HO.MAMMO Attending Dr: Melo Rice MD Ordering Physician: Melo Rice MDResu lts: 2Benign Findings Date of Service: 12/20/23Follow Up: 1 Year From Orig inal Mammogram Procedure(s): MM tomosynthesis screening BI Accession Number(s): [id number] cc: Melo Rice MD EXAMINATION: MM SCREENING [...] Rosaura Dumont DO 01/02/2024 06:50 PM EDT Dictated By: Rosaura Dumont DO Signed By: <Electronically signed by Rosaura Dumont DO in OV> 01/02/24 1850 DD/ 1330 TD/TT: 12/20/23 1340 Special Effects Person: us Melo Bermudez MD IMG BI PROCEDURES Fin al Result * HEPATITIS C AB W/REFL TO HCV RNA, QN, PCR (11/06/2021 11:15 AM EDT) HEPATITIS C ANTIBODY NON-REACT ALFONZO NON-REACT ALFONZO [facility] INDEX 0.11 <1.00 [facility] Comment: HCV antibody was non-reactive. There is no laboratory evidence of HCV infection. In most cases, no further action is required. However, if recent HCV exposure is suspected, a test for HCV RNA (test code 56851) is suggested. For additional information please refer to http://education.MedTel24/faq/YRL66j0 (This link is being provided for informational/ educational purposes only.) 11/06/2021 11:1 5 AM EDT Melo Bermudez MD HISTORICAL/NON ORDERA BLE LABS Final Result [facility] [address] * Colonoscopy (07/17/2015) Colonoscopy Normal Normal 07/17/2015 Narrative Claritza Rousseau - 07/17/2015 10:34 AM EDT Recommended 10 year follow up (see scanned notes) Historical Provider HEALTH MAINTENANCE Edited Result - Final from Last 3 Months or Most Recently Relevant to Health Maintenance Insurance [facility] DUAL COMPLETE Care Teams Corral Boss Relationship Specialty Start Date End Date Melo Grier MD [address] [place] [phone] PCP - General Internal Medicine 10/19/13
--- OUTSIDE RECORDS SUMMARY | 2024-12-28 12:35 | XMS_ITS | Patient Health Record ---
Author Organization [facility] Address [address] [place] [address] Care Team Providers Care Bullet Lubricant Mixer Name Role Phone Yanni Bermudez MD, Melo Primary Care Provide Wm Merino [phone] Allergies Allergen (clinical drug ingredient) Drug/Non Drug Allergy documented on EMR Reaction Allergy Type Onset Date Status tramadol Tramadol HCl Unknown Drug Allergy Acti ve seasonal allergies (uncoded) Unknown Allergy Active Fish derivative (substance) fish (uncoded) Unknown Allergy Active Reason For Referral No Information Medications Medication SIG (Take, Route, Frequency, Duration) Notes Start Date End Date Status Loratadine 10 MG Orally Act raysa Proventil Active Levothyroxine Sodium 137 MCG Orally Active Meloxicam Active MiraLax 1 1 Bottle Orally as directed for 1 dose 05/11/2015 Active Dulcolax 5 MG 2 tablets Orally as directed for 1 dose 05/11/2015 Active Problems Problem Type SNOMED Code ICD Code Onset Dates Problem Status W/U Status Risk Notes Problem 776214888 Gastro-esophagea l reflux disease without esophagitis (K21.9) Active confirmed Problem 772424712 Encounter for screening for malignant neoplasm of colon (Z12.11) Active confirmed Problem 505791874 Anemia in other chronic diseases classified elsewhere (D63.8) Active confirmed Problem Screening for malignant neoplasm of rectum (469747953) Encounter for screening for malignant neoplasm of rectum (Z12.12) Active confirmed Problem 56400802 Constipation, unspecified constipation type (K59.00) Active confirmed Plan Of Treatment Future Test Test Name Order Date COLONOSCOPY 05/08/2015 Insurance Providers Payer Name Payer Address Payer Phone Subscriber Number Group Number Insured Name Patient Relationship to Insured Coverage Start Date Coverage End Date [facility] [address] [place] [address] [id number] ROGER ACOSTA Self - patient is the insured Medical (General) History Medical History History ICD Code GERD-EGD 08-21-2009--large HH , no esophagitis, no Armstrong's, mild gastritis with bx neg. for H.pylori Hypothyroidism Negative colonoscopy in 2004 except a hyperplastic polyp, mild sigmoid diverticulosis, and internal hemorrhoids Denies PR,DM,CVA,renal disease Arthritis Asthma/Allergies Surgical History Surgery Date(Month/Year) cholecystectomy tubal ligation Lap band--Dr. Javier--not using it anymo re 2009
--- OUTSIDE RECORDS SUMMARY | 2024-12-28 12:35 | XMS_ITS | Encounter Summary ---
Author Organization [employer] Address [address] [facility] [address] 7[address] [place] [address] Care Team Providers Care Television Repair Teacher Name Role Phone Melo Grier MD Primary Care Provide r Encounter Details Date Type Department Care Team (Late st Contact Info) Description 10/04/2022 Orders Only [facility] CH[facility] MED & PEDS [address] [place] [address] Yanci Hernandez LPN Social History Tobacco Use [...] on filedocumented in this encounter Care Teams Television Repair Teacher Relationship Specialty Start Date End Date Melo Grier MD [address] [place] [phone] PCP - General Internal Medicine 10/19/13 documented as of this encounter
--- OUTSIDE RECORDS SUMMARY | 2024-12-28 12:35 | XMS_ITS | Encounter Summary ---
Author Organization [employer] Address [address] [facility] 7t [place] [address] Care Team Providers Care Emergency Detail Driver Name Role Phone Melo Grier MD Primary Care Provide r Encounter Details Date Type Department Care Team (Late st Contact Info) Description 09/02/2022 Orders Only [facility] MEDICINE [address] [place] [address] Lisa Riddle LPN Social History Tobacco Use [...] on filedocumented in this encounter Care Teams Emergency Detail Driver Relationship Specialty Start Date End Date Melo Grier MD [address] [place] [address] PCP - General Internal Medicine 10/19/13 documented as of this encounter
--- OUTSIDE RECORDS SUMMARY | 2024-12-28 12:35 | XMS_ITS | Encounter Summary ---
Author Organization [employer] Address [address] [facility] 7t [place] [address] Care Team Providers Care Rail Bender Name Role Phone Melo Grier MD Primary Care Provide r Reason for Visit * Reason Onset Date Comments Nurse Triage 08/08/2023 ER NOTES REQUEST 08/08/2023 Encounter Details Date Type Department Care Team ([facility] st Contact Info) Description 08/08/2023 Telephone [facility] MEDICINE [address] [place], [place] [phone] Melo Grier MD [address] [place] [address] Nurse Triage; ER NOTES REQUEST Social History [...] Please assist with obtaining discharge summary for [facility] ED visit on 08/06/2023 for provider review prior to upcoming appointment. Future Appointments Date Time Provider Department Center 08/08/2023 2:00 PM Zuri Rogers MD [facility] * Telephone Encounter - Charlee Van RN - 08/08/2023 1:20 PM EDT No [facility] ED Notes in Epic. Call returned to Marcia Diaz to triage below. Reports having been seen at [facility] ED for right [...] Center 08/08/2023 2:00 PM Zuri Rogers MD [facility] Video visit offer not recorded Positive Triage [...] accepted this outcome Pt inform went to [facility] er on 08/06/23 [...] documented as of this encounter Care Teams Rail Bender Relationship Specialty Start Date End Date Melo Grier MD [address] [place] [address] PCP - General Internal Medicine 10/19/13 documented as of this encounter
--- OUTSIDE RECORDS SUMMARY | 2024-12-28 12:35 | XMS_ITS | Encounter Summary ---
Author Organization [employer] Address [address] [facility] [address] [place] [address] Care Team Providers Care Fire Crew Specialist Name Role Phone Melo Grier MD Primary Care Provide r Reason for Visit * Reason Comments Med Refill Encounter Details Date Type Department Care Team ([facility] Contact Info) Description 11/06/2023 Refill C [facility] [address] [place], [place] [phone] Melo Grier MD [address] [place] [address] Social History Tobacco Use Types Packs/Day Years [...] documented as of this encounter Care Teams Fire Crew Specialist Relationship Specialty Start Date End Date Melo Grier MD [address] [place] [phone] PCP - General Internal Medicine 10/19/13 documented as of this encounter
--- OUTSIDE RECORDS SUMMARY | 2024-12-28 12:35 | XMS_ITS | Encounter Summary ---
Author Organization [employer] Address [address] [facility] 7t [place] [address] Care Team Providers Care Associate Professor Of Chemistry Name Role Phone Melo Grier MD Primary Care Provide r Encounter Details Date Type Department Care Team (Late st Contact Info) Description 08/12/2022 Abstract [facility] MEDICINE [address] [place], [place] [phone] Melo Grier MD [address] [place], [place] [phone] Social History Tobacco Use Types Packs/Day Years [...] Colonoscopy (07/17/2015) Colonoscopy Normal Normal 07/17/2015 Narrative Onelia Claritza - 07/17/2015 10:34 AM EDT Recommended 10 year follow up (see scanned notes) us Historical Provider HEALTH MAINTENANCE Edited Result - Final documented in this encounter Visit Diagnoses Not on filedocumented in this encounter Care Teams Associate Professor Of Chemistry Relationship Specialty Start Date End Date Melo Grier MD [address] [place] [address] PCP - General Internal Medicine 10/19/13 documented as of this encounter
--- OUTSIDE RECORDS SUMMARY | 2024-12-28 12:35 | XMS_ITS | Encounter Summary ---
Author Organization [employer] Address [address] [facility] [address] [place] [address] Care Team Providers Care Clinical Care Leader Name Role Phone Melo Grier MD Primary Care Provide r Encounter Details Date Type Department Care Team (Late st Contact Info) Description 06/30/2022 Orders Only [facility] CHC MED & PEDS [address] [place] [address] Yanci Hernandez LPN Social History Tobacco Use [...] on filedocumented in this encounter Care Teams Clinical Care Leader Relationship Specialty Start Date End Date Melo Grier MD [address] [place] [phone] PCP - General Internal Medicine 10/19/13 documented as of this encounter
--- OUTSIDE RECORDS SUMMARY | 2024-12-28 12:35 | XMS_ITS | Encounter Summary ---
Author Organization [employer] Address 75 [facility] 7t [place] [address] Care Team Providers Care Galley Hand Name Role Phone Melo Grier MD Primary Care Provide r Reason for Visit * Reason Comments Med Refill Encounter Details Date Type Department Care Team ([facility] Contact Info) Description 06/29/2023 Refill [facility] MEDICINE [address] [place], [place] [phone] Melo Grier MD [address] [place] [address] Social History Tobacco Use Types Packs/Day Years [...] documented as of this encounter Care Teams Galley Hand Relationship Specialty Start Date End Date Melo Grier MD [address] [place] [phone] PCP - General Internal Medicine 10/19/13 documented as of this encounter
--- OUTSIDE RECORDS SUMMARY | 2024-12-28 12:36 | XMS_ITS | Encounter Summary ---
Author Organization [employer] Address [address] [facility] [address] [place] [address] Care Team Providers Care Ammunition Assembly Laborer Name Role Phone Melo Grier MD Primary Care Provide r Encounter Details Date Type Department Care Team (Late st Contact Info) Description 12/07/2022 Orders Only [facility] [address] [place] [phone] Gerard Colbert MD [address] [place] [address] Dysuria (Primary Dx); Hypothyroidism, unspecified type Social [...] Free T4 5.97(H) 0.32 - 4.0 uIU/mL [facility] Blood 12/09/2022 3:44 PM EDT 12/09/2022 5:14 PM EDT us Gerard Colbert MD LAB BLOOD ORDERABLES Final Resul t Performing Organization Address City/State/[facility] Co de Phone Number [facility] [address] [place] [address] [phone] documented in this encounter Visit Diagnoses Diagnosis Dysuria- Primary Hypothyroidism, unspecified type documented in this encounter Care Teams Ammunition Assembly Laborer Relationship Specialty Start Date End Date Melo Grier MD [address] [place] [phone] PCP - General Internal Medicine 10/19/13 documented as of this encounter
== END 2024-12-28 10:52 | disposition home or self-care (01) ==
LOC: HO.MAMMO 10:51
PROVIDERS: PCP Internal Medicine; Visit Provider Internal Medicine
DX: Z12.31 Encounter for screening mammogram for malignant neoplasm of breast (principal)
CPT/HCPCS: 77063; 77067

== ENCOUNTER → 2024-12-28 12:00 | Outpatient (BNV) | payer OTHER, SELFPAY | PROVIDERS: PCP Internal Medicine; Visit Provider Internal Medicine | DX: Z12.31 Encounter for screening mammogram for malignant neoplasm of breast (principal) | CPT/HCPCS: 77063; 77067 ==